=== PATIENT | female | born 1980 | race Caucasian/White ===

== ENCOUNTER 2018-04-03 09:03 | Day surgery (SDC) | payer OTHER ==
--- OUTSIDE RECORDS SUMMARY | 2018-04-03 09:06 | XMS REPORT ---
:1980 [facility] Address [address] [place] [address] Dr. Martinez[address] [place] [id number] Care Team Providers Name Role Phone DR XOCHITL FAYE Unavailable Unavailable Problems This patient has no known problems. Allergies, Adverse Reactions, Alerts This patient has no known allergies or adverse reactions. Medications This patient has no known medications. Encounters Start End Encounter Admission Attending Care Care Encounter Date/Time Date/Time Type Type Clinicians Facility Department ID 2017-09-01 2017-09-01 Outpatient C LAUREN FAYE [facility] [id number] 05:08:00 09:01:00 XOCHITL
--- OUTSIDE RECORDS SUMMARY | 2018-04-03 09:06 | XMS REPORT | Clinical Summary ---
:1980 Author Organization [facility] Address [address] [place] [address] Phone Care Team Providers Name Role Phone Unavailable Primary Care Provider Unavailable Allergies No Known Allergies Current Medications Prescription Sig. Disp. Refills Start Date End Date Status sertraline (ZOLOFT) 25 MG Take 25 mg by Active tablet mouth daily. esomeprazole (NEXIUM) 20 Take 20 mg by Active MG capsule mouth daily. Active Problems Problem Noted Date Abdominal pain 06/23/2016 Social History Tobacco Use Types Packs/Day Years Used Date Current Every Day Smoker Cigarettes Sex Assigned at Date Recorded Not on file Last Filed Vital Signs Not on file Plan of Treatment Not on file Results Not on fileafter 04/02/2017
--- NOTE | 2018-04-03 09:34 | RAD REPORT ---
EXAM DESCRIPTION: RAD - Abdomen 1 View (KUB) - 04/03/2018 9:12 am CLINICAL HISTORY: Right nephrolithiasis COMPARISON: 04/02/2018, 02/27/2018 FINDINGS: The bowel gas pattern is non-obstructive. No evidence of free air or pneumatosis. Calcific ations in the superior aspect of the right kidney compatible with right nephrolithiasis noted. Cholecystectomy clips. Postsurgical changes about the stomach seen. IMPRESSION: Right superior nephrolithiasis as detailed.
[2018-04-03] MEDS ORDERED: Ringers Lactate 1,000 ML IV ONE (09:35)
[2018-04-03] MEDS ORDERED: GENTAMICIN 80 MG/100 ML BAG 80 MG/100 ML BAG IV ONE (09:36)
[2018-04-03] MEDS ORDERED: PROPOFOL 200 MG/20 ML VIAL IV ONE (11:08)
[2018-04-03] MEDS ORDERED: MIDAZOLAM HCL 2 MG/2 ML INJ ONE (11:09)
[2018-04-03] MEDS ORDERED: FENTANYL CITR 100 MCG/2 ML ONE (11:09)
[2018-04-03] MEDS ORDERED: LIDOCAINE 1% MPF 5 ML VIAL ONE (11:14)
[2018-04-03] MEDS ORDERED: ONDANSETRON 4 MG/2 ML VIAL ONE (12:01)
[2018-04-03] MEDS: MEPERIDINE HCL 25 MG/0.5 ML ONE ×2 (12:51→13:04)
[2018-04-03] MEDS ORDERED: DIPHENHYDRAMINE 50 MG/ML VIAL ONE (13:17)
[2018-04-03] MEDS ORDERED: MEPERIDINE HCL 25 MG/0.5 ML ONE (13:19)
== END 2018-04-03 15:30 | disposition home or self-care (01) ==
LOC: OR 09:03
PROVIDERS: ATTEND Urology
PROC: 0TF3XZZ Fragmentation in Right Kidney Pelvis, External Approach (ICD-10-PCS; principal; 2018-04-03 12:00)
DX: N20.0 Calculus of kidney (principal); K50.90 Crohn's disease, unspecified, without complications; F17.200 Nicotine dependence, unspecified, uncomplicated; Z98.84 Bariatric surgery status; Z83.3 Family history of diabetes mellitus; Z82.49 Family history of ischemic heart disease and other diseases of the circulatory system
CPT/HCPCS: 50590; 74018; J1580; J2175; J2250; J2405; J3010

== ENCOUNTER 2021-03-14 06:48 | Inpatient (IN) | payer BC, OTHER ==
--- OUTSIDE RECORDS SUMMARY | 2021-03-14 06:49 | XMS REPORT | Continuity of Care Document ---
:[address] [facility] Address [address] [place] [address] Care Team Providers Name Role Phone Asked, Pcp Primary Care Physician Unavailable DR YUNIER Attending Clinician Unavailable DR YUNIER Admitting Clinician Unavailable Problems Condition Condition Condition Status Onset Resolution Last Treating Co mments Source Name Details Category Date Date Treatment Clinician Date Abdominal Abdominal Disease Active [facility] Allergies, Adverse Reactions, Alerts This patient has no known allergies or adverse reactions. Social History Social Habit Start Date Stop Date Quantity Comments Source History of Cigarette Sm[facility] intake 2016-06-23 2016-06-[address] [facility] Sex Assigned At [birth year] [facility] 00:[facility]:00 00:00:00 Smoking Status Start Date Stop Date Source Current every day smoker 2016-06-23 00:00:[address] [facility] Medications Ordered Filled Start Stop Current Ordering Indication Dosage Frequency Signature Comments Components Source Medication Medication Date Date Medication? Clinician (SIG) Name Name sertraline Yes 25mg QD Take [address] (ZOLOFT) 25 - by mouth [facility] - MG tablet 16:25: daily. Medica l [address] [place] [address] esomeprazol Yes 20mg QD Take [address] [facility] (NEXIUM) 06-24 [facility] - 20 MG 16:25: daily. Medical capsule [address] [place] [address] Procedures This patient has no known procedures. Plan of Care Planned Activity Planned Date Details Comments Source Future Scheduled 2021-06-27 INFLUENZA VACCINE [place] [facility] 00:00:00 [code = INFLUENZA VACCINE] Future Scheduled [address] [facility]odist Test 00:00:00 malignant neoplasm of cervix (procedure) [code = 499565304] Future Scheduled 2000 Hepatitis C [facility] 00:00:00 screening (procedure) [code = 661516430] Future Scheduled 1998 COVID-19 VACCINE (1) [facility] 00:00:00 [code = COVID-19 VACCINE (1)] Encounters Start End Encounter Admission Attending Care Care Encounter Source Date/Time Date/Time Type Type Clinicians Facility Department ID 2017-09-01 2017-09-01 Outpatient C LAUREN FAYE [facility] [id number] [address] 05:08:00 09:01:00 [facility] Results This patient has no known results.
[2021-03-14 08:01] LABS: Absolute Lymphocytes (CBC) 2.7 K/uL (0.7-4.9); Basophils % 0.6 % (0-1.3); MPV 9.7 fL (7.6-11.3); RBC Red Blood Cell Count 4.57 M/uL (3.86-4.86)
[2021-03-14] MEDS ORDERED: ONDANSETRON 4 MG/2 ML VIAL ONE ×2 (08:01→13:11)
[2021-03-14] MEDS ORDERED: CIPROFLOXACIN 400mg IV 400 MG/200 ML BAG IV ONE (08:01)
[2021-03-14] MEDS ORDERED: MORPHINE 4 MG/ML SYR ONE ×3 (08:01→13:11)
[2021-03-14] MEDS ORDERED: METRONIDAZOLE 500mg IVPB 500 MG/100 ML BAG IV ONE (08:02)
[2021-03-14] MEDS ORDERED: NA CHLORIDE 0.9% 3,000 ML ONE (08:02)
[2021-03-14 08:15] LABS: ALT/SGPT 54 U/L (12-78); AST/SGOT 29 U/L (15-37); Albumin 3.6 g/dL (3.4-5.0); Alkaline Phosphatase 167 U/L (45-117); BUN Blood Urea Nitrogen 13 mg/dL (7-18); Bicarbonate 28 mmol/L (21-32); Bilirubin Direct < 0.1 mg/dL (0-0.2); Bilirubin Total 0.4 mg/dL (0.2-1.0); Glucose Level 88 mg/dL (74-106); Lipase 242 U/L (73-393); Potassium 3.8 mmol/L (3.5-5.1); Protein, Total 7.3 g/dL (6.4-8.2); Sodium Level 141 mmol/L (136-145)
[2021-03-14 08:38] LABS: Blood Morphology Comment NOTED (NOT SEEN); Platelet Estimate ADEQ; Stomatocytes 1+
[2021-03-14] MEDS ORDERED: FAMOTIDINE 20 MG/2 ML VIAL IV ONE (08:49)
[2021-03-14 09:41] LABS: Urine Blood TRACE (Negative); Urine Glucose NEGATIVE (Negative); Urine Protein NEGATIVE (Negative); Urine pH 5.5 (5.0-7.0)
--- NOTE | 2021-03-14 10:29 | RAD REPORT ---
EXAM DESCRIPTION: CT - Abdomen Pelvis W Contrast - 03/14/2021 10:00 am CLINICAL HISTORY: Abdominal pain. COMPARISON: 2017 TECHNIQUE: Computed axial tomography of the abdomen and pelvis was obtained. 100 cc Isovue-300 is ad ministered intravenously. Oral contrast was given. All CT scans are performed using dose optimization technique as appropriate and may include automated exposure control or mA/KV adjustment according to patient size. FINDINGS: Gastrojejunostomy. Jejunum and portions of ileum are mildly dilated. Mild thickening of the wall of t he terminal ileum Left lobe of the liver is enlarged. Cholecystectomy. Spleen, pancreas, adrenals and kidneys appear unremarkable. Hysterectomy. There is no evidence of diverticulitis/colitis IMPRESSION: Mild thickening of the wall of the terminal ileum probably secondary to inflammation. Mild dilatation of small bowel probably an enteritis or ileus. If the patient's symptoms persist then followup abdominal plain film series would be recommended
--- NOTE | 2021-03-14 11:54 | ER ---
Nurse's Notes [facility] Name: Jovan Fregoso Age: 40 yrs Sex: Female : 1980 Arrival Date: 03/14/2021 Time: 06:51 Bed 7 Private MD: Diagnosis: Abdominal tenderness;Ileus, unspecified;Crohn's disease [regional enteritis];Vomiting Presentation: 03/14 07:00 Chief complaint: Patient states: hx of Crohn's, reports lower abdominal pain for 1-2 em weeks, reports blood in stool, saw her GI DR and prescribed ABX's, pain is getting worse, also reports burning with urination and nausea, denies fever. Coronavirus screen: Client denies travel out of the [place] in the last 14 days. Ebola Screen: Patient negative for fever greater than or equal to 101.5 degrees Fahrenheit, and additional compatible Ebola Virus Disease symptoms Patient denies exposure to infectious person. Patient denies travel to an Ebola-affected area in the 21 days before illness onset. No symptoms or risks identified at this time. Initial Sepsis Screen: Does the patient meet any 2 criteria? No. Patient's initial sepsis screen is negative. Does the patient have a suspected source of infection? No. Patient's initial sepsis screen is negative. Risk Assessment: Do you want to hurt yourself or someone else? Patient reports no desire to harm self or others. Onset of symptoms was March 14, 2021. 07:00 Method Of Arrival: Ambulatory em 07:00 Acuity: AKIN 3 em NEWS VIDEO EDITOR: 09:46 LMP N/A - Hysterectomy jl7 Historical: - Allergies: 07:03 No Known Allergies; em - PMHx: 07:03 Crohn's; em - PSHx: 07:03 Hysterectomy; multiple bowel surgeries; Cholecystectomy; Appendectomy; ; em - Immunization history:: Adult Immunizations up to date. - Social history:: Smoking status: Patient denies any tobacco usage or history of. - Family history:: not pertinent. Screenin:24 Abuse screen: Denies threats or abuse. Denies injuries from another. Nutritional jl7 screening: No deficits noted. Tuberculosis screening: No symptoms or risk factors identified. Fall Risk IV access (20 points). Total Pan Fall Scale indicates No Risk (0-24 pts). Assessment: 07:30 Reassessment: Dr. Hays at bedside. jl7 07:45 General: Appears in no apparent distress. uncomfortable, Behavior is calm, cooperative, jl7 appropriate for age, crying. Pain: Complains of pain in abdomen diffusely Pain currently is 10 out of 10 on a pain scale. Quality of pain is described as sharp, Pain began x 2 weeks Is continuous. Neuro: Level of Consciousness is awake, alert, obeys commands, Oriented to person, place, time, situation. Cardiovascular: Patient's skin is warm and dry. Respiratory: Airway is patent Respiratory effort is even, unlabored, Respiratory pattern is regular, symmetrical. GI: Abdomen is non-distended, Reports lower abdominal pain, upper abdominal pain, bloody stool, nausea. : Reports burning with urination. Derm: Skin is pink, warm \\T\\ dry. 08:10 Reassessment: Pt finished drinking oral contrast, CT notified. jl7 08:56 Reassessment: Pain decreased but still 7/10, ERD notified, see MAR for orders. jl7 10:00 Reassessment: Patient appears in no apparent distress at this time. Patient and/or jl7 family updated on plan of care and expected duration. Pain level reassessed. Patient is alert, oriented x 3, equal unlabored respirations, skin warm/dry/pink. 11:00 Reassessment: Patient appears in no apparent distress at this time. Patient and/or jl7 family updated on plan of care and expected duration. Pain level reassessed. Patient is alert, oriented x 3, equal unlabored respirations, skin warm/dry/pink. 12:00 Reassessment: Patient appears in no apparent distress at this time. Patient and/or jl7 family updated on plan of care and expected duration. Pain level reassessed. Patient is alert, oriented x 3, equal unlabored respirations, skin warm/dry/pink. 13:00 Reassessment: Patient appears in no apparent distress at this time. Patient and/or jl7 family updated on plan of care and expected duration. Pain level reassessed. Patient is alert, oriented x 3, equal unlabored respirations, skin warm/dry/pink. 14:00 Reassessment: Patient appears in no apparent distress at this time. Patient and/or jl7 family updated on plan of care and expected duration. Pain level reassessed. Patient is alert, oriented x 3, equal unlabored respirations, skin warm/dry/pink. 14:20 Reassessment: Pt c/o itching and states "They normally give me Benadryl with the pain jl7 medicine." ERD notified, see MAR for orders. 16:30 Reassessment: Pt c/o continued pain and itching, states "Can I have something other jl7 than Morphine?" Hospitalist is on his way to her room, pt verbalized understanding. 16:45 Reassessment: Hospitalist at bedside. jl7 17:54 Reassessment: Pt c/o continued itching, states "The other doctor said he was going to jl7 put for me to have Dilaudid and Benadryl with it." Informed pt the hospitalist put in for her to have 2 mg Morphine and Benadryl q8hrs, updated that I would need to get in contact with the hospitalist. Pt verbalized understanding. JENNIFER Orozco night hospitalist gave VO for 0.5 mg Dilaudid IVP and 12.5 mg Benadryl IVP x 1, medicated as ordered. 20:00 GI: Bowel sounds present X 4 quads. Abd is soft and non tender X 4 quads. rv Vital Signs: 07:00 BP 129 / 78; Pulse 90; Resp 18; Temp 97.8(O); Pulse Ox 99% on R/A; Weight 99.79 kg; em Height 5 ft. 3 in. (160.02 cm); Pain 9/10; 08:24 BP 118 / 70; Pulse 78; Resp 15; Pulse Ox 99% ; jl7 09:46 BP 120 / 89; Pulse 61; Resp 15; Pulse Ox 100% ; jl7 10:46 BP 103 / 83; Pulse 58; Resp 15; Pulse Ox 99% ; jl7 13:00 BP 130 / 96; Pulse 59; Resp 15; Pulse Ox 98% ; jl7 17:45 BP 129 / 94; Pulse 57; Resp 15; Pulse Ox 100% ; jl7 19:44 BP 125 / 93; Pulse 63; Resp 19; Pulse Ox 99% ; rr5 07:00 Body Mass Index 38.97 (99.79 kg, 160.02 cm) em ED Course: 06:51 Patient arrived in ED. bp1 07:02 Triage completed. em 07:03 Arm band placed on. em 07:09 Estrella Rice, ABBEY is Primary Nurse. jl7 07:13 Randell Hays MD is Attending Physician. anuj 07:50 Initial lab(s) drawn, by me, sent to lab. Inserted saline lock: 20 gauge in right jl7 antecubital area, using aseptic technique. Blood collected. 08:00 Urine collected: clean catch specimen. jl7 08:24 Patient has correct armband on for positive identification. Bed in low position. Call jl7 light in reach. Side rails up X 1. Pulse ox on. NIBP on. Warm blanket given. 08:25 COVID swab sent to lab. jl7 10:00 CT Abd/Pelvis - PO and IV Contrast In Process Unspecified. EDMS 11:52 Prince Cornell MD is Hospitalizing Provider. anuj 16:11 Johnny Glez MD is Hospitalizing Provider. anuj 18:04 No provider procedures requiring assistance completed. Patient admitted, IV remains in jl7 place. intact, No redness/swelling at site. 19:15 Primary Nurse role handed off by Estrella Rice, ABBEY mw2 19:40 Nicolas Payton RN is Primary Nurse. rr5 Administered Medications: 07:45 Drug: NS 0.9% 1000 ml Route: IV; Rate: 1 bolus; Site: right antecubital; jl7 09:00 Follow up: Response: No adverse reaction; IV Status: Completed infusion; IV Intake: jl7 1000ml 07:45 Drug: Flagyl (metroNIDAZOLE) 500 mg Volume: 100 ml; Route: IVPB; Rate: 200 ml/hr; jl7 Infused Over: 30 mins; Site: right antecubital; 08:15 Follow up: Response: No adverse reaction; IV Status: Completed infusion jl7 07:48 Drug: Zofran (Ondansetron) 4 mg Route: IVP; Site: right antecubital; jl7 08:00 Follow up: Response: No adverse reaction; Nausea is decreased jl7 07:50 Drug: morphine 4 mg Route: IVP; Site: right antecubital; jl7 08:00 Follow up: Response: No adverse reaction; Pain is decreased jl7 07:50 Drug: Cipro (ciprofloxacin) 400 mg Volume: 200 ml; Route: IVPB; Infused Over: 60 mins; jl7 Site: right antecubital; 08:50 Follow up: Response: No adverse reaction; IV Status: Completed infusion jl7 08:17 Drug: NS 0.9% 1000 ml Route: IV; Rate: 125 ml/hr; Site: right antecubital; jl7 12:58 Follow up: IV Status: Infusion continued upon admission jl7 08:55 Drug: Pepcid (famotidine) 20 mg Route: IVP; Site: right antecubital; jl7 09:47 Follow up: Response: No adverse reaction jl7 08:55 Drug: NS 0.9% 1000 ml Route: IV; Rate: 1 bolus; Site: right antecubital; jl7 10:30 Follow up: Response: No adverse reaction; IV Status: Completed infusion; [facility]: [facility] 1000ml 09:02 Drug: morphine 4 mg Route: IVP; Site: right antecubital; jl7 09:30 Follow up: Response: No adverse reaction; Pain is decreased jl7 12:12 Drug: SOLU-Medrol (methylPrednisoLONE) 125 mg Route: IVP; Site: right antecubital; ca1 12:57 Follow up: Response: No adverse reaction jl7 12:55 Drug: Zofran (Ondansetron) 4 mg Route: IVP; Site: right antecubital; jl7 13:15 Follow up: Response: No adverse reaction; Nausea is decreased jl7 12:57 Drug: morphine 4 mg Route: IVP; Site: right antecubital; jl7 13:15 Follow up: Response: No adverse reaction; Pain is decreased jl7 14:23 Drug: Benadryl (diphenhydrAMINE) 25 mg Route: IVP; Site: right antecubital; jl7 20:02 Follow up: Response: No adverse reaction rv 17:53 Drug: Benadryl (diphenhydrAMINE) 12.5 mg Route: IVP; Site: right antecubital; jl7 20:02 Follow up: Response: No adverse reaction rv 17:53 Drug: Dilaudid (HYDROmorphone) 0.5 mg Route: IVP; Site: right antecubital; jl7 20:02 Follow up: Response: No adverse reaction; Marked relief of symptoms; Pain is decreased; rv RASS: Alert and Calm (0) 17:54 Not Given (wrong order): Dilaudid (HYDROmorphone) 0.5 mg IM once; RASS on ADMIN: jl7 Combtv4, Very Agttd3, Agttd2, Rstlss1, AlertClm0, Drwsy-1, Lt Sdtn-2, Mod Sdtn-3, Dp Sdtn-4, UnArsble-5 Intake: 09:00 IV: 1000ml; Total: 1000ml. jl7 10:30 IV: 1000ml; Total: 2000ml. jl7 Outcome: 11:53 Decision to Hospitalize by Provider. anuj 19:19 Instructed on the need for admit. mary anne 20:00 Admitted to Tele accompanied by tech, via wheelchair, room 428, Other sbar Report rv called to DANY POTTER 20:00 Condition: good 20:25 Patient left the ED. rv Signatures: Dispatcher [employer] Randell Vallejo MD MD cha Munoz, Edgar, RN RN Estrella Ku, RN RN jl7 Latrice Mcdermott RN Naresh Childress ea 2 Dhaval iNcholson RN RN Nicolas Andre, RN RN rr5 Shaista Manzo, RN RN ca1 Sheela Moon bp1
--- NOTE | 2021-03-14 11:54 | EDPHYS ---
Physician Documentation [facility] Name: Jovan Fregoso Age: 40 yrs Sex: Female : 1980 Arrival Date: 03/14/2021 Time: 06:51 Bed 7 Private MD: YUMIKO Physician Randell Hays HPI: 03/14 07:44 This 40 yrs old Female presents to ER via Ambulatory with complaints of anuj Abdominal Pain. 07:44 The patient presents with abdominal pain in the upper abdomen, in the lower abdomen, anuj abdominal distention in the upper abdomen, in the lower abdomen. Onset: The symptoms/episode began/occurred 2 day(s) ago. The patient presents to the emergency department with nausea, vomiting, abdominal pain, of the right upper quadrant, left upper quadrant, right lower quadrant and left lower quadrant. Onset: The symptoms/episode began/occurred 2 day(s) ago. Possible causes: unknown. The symptoms are aggravated by movement, pressure, food , The symptoms are alleviated by. The symptoms do not radiate. Associated signs and symptoms: Pertinent positives: abdominal pain, belching, nausea, vomiting. Modifying factors: The symptoms are alleviated by remaining still, the symptoms are aggravated by drinking, food, movement. SCHEDULE CHECKER: 09:46 LMP N/A - Hysterectomy jl7 Historical: - Allergies: 07:03 No Known Allergies; em - PMHx: 07:03 Crohn's; em - PSHx: 07:03 Hysterectomy; multiple bowel surgeries; Cholecystectomy; Appendectomy; ; em - Immunization history:: Adult Immunizations up to date. - Social history:: Smoking status: Patient denies any tobacco usage or history of. - Family history:: not pertinent. ROS: 07:44 Constitutional: Negative for fever, chills, and weight loss, Eyes: Negative for injury, anuj pain, redness, and discharge, ENT: Negative for injury, pain, and discharge, Neck: Negative for injury, pain, and swelling, Cardiovascular: Negative for chest pain, palpitations, and edema, Respiratory: Negative for shortness of breath, cough, wheezing, and pleuritic chest pain, Back: Negative for injury and pain, : Negative for injury, bleeding, discharge, and swelling, MS/Extremity: Negative for injury and deformity, Skin: Negative for injury, rash, and discoloration, Neuro: Negative for headache, weakness, numbness, tingling, and seizure, Psych: Negative for depression, anxiety, suicide ideation, homicidal ideation, and hallucinations, Allergy/Immunology: Negative for hives, rash, and allergies, Endocrine: Negative for neck swelling, polydipsia, polyuria, polyphagia, and marked weight changes, Hematologic/Lymphatic: Negative for swollen nodes, abnormal bleeding, and unusual bruising. 07:44 Abdomen/GI: Positive for abdominal pain, nausea and vomiting, abdominal cramps, abdominal distension, of the right upper quadrant, left upper quadrant, right lower quadrant and left lower quadrant. Exam: 07:44 Constitutional: This is a well developed, well nourished patient who is awake, alert, anuj and in no acute distress. Head/Face: Normocephalic, atraumatic. Eyes: Pupils equal round and reactive to light, extra-ocular motions intact. Lids and lashes normal. Conjunctiva and sclera are non-icteric and not injected. Cornea within normal limits. Periorbital areas with no swelling, redness, or edema. ENT: Nares patent. No nasal discharge, no septal abnormalities noted. Tympanic membranes are normal and external auditory canals are clear. Oropharynx with no redness, swelling, or masses, exudates, or evidence of obstruction, uvula midline. Mucous membranes moist. Neck: Trachea midline, no thyromegaly or masses palpated, and no cervical lymphadenopathy. Supple, full range of motion without nuchal rigidity, or vertebral point tenderness. No Meningismus. Chest/axilla: Normal chest wall appearance and motion. Nontender with no deformity. No lesions are appreciated. Cardiovascular: Regular rate and rhythm with a normal S1 and S2. No gallops, murmurs, or rubs. Normal PMI, no JVD. No pulse deficits. Respiratory: Lungs have equal breath sounds bilaterally, clear to auscultation and percussion. No rales, rhonchi or wheezes noted. No increased work of breathing, no retractions or nasal flaring. Back: No spinal tenderness. No costovertebral tenderness. Full range of motion. Skin: Warm, dry with normal turgor. Normal color with no rashes, no lesions, and no evidence of cellulitis. MS/ Extremity: Pulses equal, no cyanosis. Neurovascular intact. Full, normal range of motion. Neuro: Awake and alert, GCS 15, oriented to person, place, time, and situation. Cranial nerves II-XII grossly intact. Motor strength 5/5 in all extremities. Sensory grossly intact. Cerebellar exam normal. Normal gait. Psych: Awake, alert, with orientation to person, place and time. Behavior, mood, and affect are within normal limits. 07:44 Abdomen/GI: Inspection: abdomen appears normal, Bowel sounds: normal, Palpation: moderate abdominal tenderness, in all quadrants, Liver: no appreciated palpable abnormalities, Hernia: not appreciated. Vital Signs: 07:00 BP 129 / 78; Pulse 90; Resp 18; Temp 97.8(O); Pulse Ox 99% on R/A; Weight 99.79 kg; em Height 5 ft. 3 in. (160.02 cm); Pain 9/10; 08:24 BP 118 / 70; Pulse 78; Resp 15; Pulse Ox 99% ; jl7 09:46 BP 120 / 89; Pulse 61; Resp 15; Pulse Ox 100% ; jl7 10:46 BP 103 / 83; Pulse 58; Resp 15; Pulse Ox 99% ; jl7 13:00 BP 130 / 96; Pulse 59; Resp 15; Pulse Ox 98% ; jl7 17:45 BP 129 / 94; Pulse 57; Resp 15; Pulse Ox 100% ; jl7 19:44 BP 125 / 93; Pulse 63; Resp 19; Pulse Ox 99% ; rr5 07:00 Body Mass Index 38.97 (99.79 kg, 160.02 cm) em MDM: 07:13 Patient medically screened. anuj 07:47 Differential diagnosis: Nonspecific abd pain, pancreatitis, diverticulitis, anuj cholecystitis, Cholelithiasis, diverticulitis, Irritable bowel syndrome, non-specific abd pain, Peptic Ulcer Disease, Ureterolithiasis, urinary tract infection. Data reviewed: vital signs, nurses notes, lab test result(s), radiologic studies, CT scan. 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 Test interpretation: by ED physician or midlevel provider:. Counseling: I had a detailed discussion with the patient and/or guardian regarding: the historical points, exam findings, and any diagnostic results supporting the discharge/admit diagnosis, lab results, radiology results. 03/14 07:38 Order name: Basic Metabolic Panel; Complete Time: 08:51 anuj 03/14 07:38 Order name: CBC with Diff; Complete Time: 08:51 anuj 03/14 07:38 Order name: Hepatic Function; Complete Time: 08:51 anuj 03/14 07:38 Order name: Lipase; Complete Time: 08:51 anuj 03/14 07:48 Order name: Urine --Ancillary (enter results); Complete Time: 09:31 eb 03/14 07:38 Order name: CT Abd/Pelvis - PO and IV Contrast; Complete Time: 17:40 anuj 03/14 07:49 Order name: Urine Dipstick--Ancillary (enter results) eb 03/14 07:50 Order name: Urine Dipstick-Ancillary EDMS 03/14 08:02 Order name: Manual Differential; Complete Time: 08:51 EDMS 03/14 09:09 Order name: SARS-COV-2 RT PCR; Complete Time: 09:31 EDMS 03/14 16:22 Order name: CBC with Automated Diff EDMS 03/14 16:22 Order name: CBC with Automated Diff EDMS 03/14 16:22 Order name: CBC with Automated Diff EDMS 03/14 07:38 Order name: IV Saline Lock; Complete Time: 08:19 anuj 03/14 07:38 Order name: Labs collected and sent; Complete Time: 08:19 anuj 03/14 07:38 Order name: Urine Dipstick-Ancillary (obtain specimen); Complete Time: 08:19 anuj 03/14 16:22 Order name: Clear Liquid EDMS Administered Medications: 07:45 Drug: NS 0.9% 1000 ml Route: IV; Rate: 1 bolus; Site: right antecubital; jl7 09:00 Follow up: Response: No adverse reaction; IV Status: Completed infusion; IV Intake: jl7 1000ml 07:45 Drug: Flagyl (metroNIDAZOLE) 500 mg Volume: 100 ml; Route: IVPB; Rate: 200 ml/hr; jl7 Infused Over: 30 mins; Site: right antecubital; 08:15 Follow up: Response: No adverse reaction; IV Status: Completed infusion jl7 07:48 Drug: Zofran (Ondansetron) 4 mg Route: IVP; Site: right antecubital; jl7 08:00 Follow up: Response: No adverse reaction; Nausea is decreased jl7 07:50 Drug: morphine 4 mg Route: IVP; Site: right antecubital; jl7 08:00 Follow up: Response: No adverse reaction; Pain is decreased jl7 07:50 Drug: Cipro (ciprofloxacin) 400 mg Volume: 200 ml; Route: IVPB; Infused Over: 60 mins; jl7 Site: right antecubital; 08:50 Follow up: Response: No adverse reaction; IV Status: Completed infusion jl7 08:17 Drug: NS 0.9% 1000 ml Route: IV; Rate: 125 ml/hr; Site: right antecubital; jl7 12:58 Follow up: IV Status: Infusion continued upon admission jl7 08:55 Drug: Pepcid (famotidine) 20 mg Route: IVP; Site: right antecubital; jl7 09:47 Follow up: Response: No adverse reaction jl7 08:55 Drug: NS 0.9% 1000 ml Route: IV; Rate: 1 bolus; Site: right antecubital; jl7 10:30 Follow up: Response: No adverse reaction; IV Status: Completed infusion; IV Intake: jl7 1000ml 09:02 Drug: morphine 4 mg Route: IVP; Site: right antecubital; jl7 09:30 Follow up: Response: No adverse reaction; Pain is decreased jl7 12:12 Drug: SOLU-Medrol (methylPrednisoLONE) 125 mg Route: IVP; Site: right antecubital; ca1 12:57 Follow up: Response: No adverse reaction jl7 12:55 Drug: Zofran (Ondansetron) 4 mg Route: IVP; Site: right antecubital; jl7 13:15 Follow up: Response: No adverse reaction; Nausea is decreased jl7 12:57 Drug: morphine 4 mg Route: IVP; Site: right antecubital; jl7 13:15 Follow up: Response: No adverse reaction; Pain is decreased jl7 14:23 Drug: Benadryl (diphenhydrAMINE) 25 mg Route: IVP; Site: right antecubital; jl7 20:02 Follow up: Response: No adverse reaction rv 17:53 Drug: Benadryl (diphenhydrAMINE) 12.5 mg Route: IVP; Site: right antecubital; jl7 20:02 Follow up: Response: No adverse reaction rv 17:53 Drug: Dilaudid (HYDROmorphone) 0.5 mg Route: IVP; Site: right antecubital; jl7 20:02 Follow up: Response: No adverse reaction; Marked relief of symptoms; Pain is decreased; rv RASS: Alert and Calm (0) 17:54 Not Given (wrong order): Dilaudid (HYDROmorphone) 0.5 mg IM once; RASS on ADMIN: jl7 Combtv4, Very Agttd3, Agttd2, Rstlss1, AlertClm0, Drwsy-1, Lt Sdtn-2, Mod Sdtn-3, Dp Sdtn-4, UnArsble-5 Disposition: 03/14/21 11:53 Hospitalization ordered by Johnny Glez for Inpatient Admission. Preliminary diagnosis are Abdominal tenderness, Ileus, unspecified, Crohn's disease [regional enteritis], Vomiting. - Bed requested for Telemetry/MedSurg (Inpatient). - Status is Inpatient Admission. rv - Condition is Fair. - Problem is new. - Symptoms have improved. Signatures: Dispatcher [employer] EDGA Randell Hays MD MD cha Munoz, Edgar, RN RN Francine Craig RN RN aa5 Ernesto Zamarripa, SHEEPSKIN PICKLER-C SHEEPSKIN PICKLER-Cla1 Estrella Rice RN RN jl7 Dhaval Nicholson, RN RN rv Shaista Manzo RN RN ca1 Corrections: (The following items were deleted from the chart) 08:29 07:39 CORONAVIRUS+MR.LAB.BRZ ordered. [facility] 16:11 11:53 Hospitalization Ordered by Prince Aneta LOPEZ for Inpatient Admission. Preliminary [facility] diagnosis is Abdominal tenderness; Ileus, unspecified; Crohn's disease [regional enteritis]; Vomiting. Bed requested for Telemetry/MedSurg (Inpatient). Status is Inpatient Admission. Condition is Fair. Problem is new. Symptoms have improved. anuj 19:01 16:11 03/14/2021 11:53 Hospitalization Ordered by Johnny Glez MD for Inpatient aa5 Admission. Preliminary diagnosis is Abdominal tenderness; Ileus, unspecified; Crohn's disease [regional enteritis]; Vomiting. Bed requested for Telemetry/MedSurg (Inpatient). Status is Inpatient Admission. Condition is Fair. Problem is new. Symptoms have improved. anuj 20:25 19:01 03/14/2021 11:53 Hospitalization Ordered by Johnny Glez MD for Inpatient rv Admission. Preliminary diagnosis is Abdominal tenderness; Ileus, unspecified; Crohn's disease [regional enteritis]; Vomiting. Bed requested for Telemetry/MedSurg (Inpatient). Status is Inpatient Admission. Condition is Fair. Problem is new. Symptoms have improved. aa5
[2021-03-14] MEDS ORDERED: METHYLPREDNISOLONE 125 MG INJ ONE (12:26)
[2021-03-14] MEDS ORDERED: DIPHENHYDRAMINE 50 MG/ML VIAL ONE ×2 (14:39→18:04)
--- NOTE | 2021-03-14 16:22 | P.HP ---
Certification for Inpatient With expected LOS: >2 Midnights Practitioner: I am a practitioner with admitting privileges, knowledge of patient current condition, hospital course, and medical plan of care. Services: Services provided to patient in accordance with Admission requirements found in Title 42 Section 412.3 of the Code of Federal Regulations Patient History Date of Service: 03/14/21 Reason for admission: Crohn's disease flare up. History of Present Illness: 40 y o female pt with hx of depression and crohn's disease who was evaluated in the Ed for episode of bleeding per rectum. She follow's up with outpt GI specialist for management of crohn's disease. She had reported feeling of abd pain and passing blood per rectum and she was diagnosed with Crohn's flare. she was started on antibiotics by mouth and she reported feeling more discomfort and not improving so she decided to come to the ED for evaluation. she had a CT of the abd/pelvis which showed inflammation in the terminal iluem which was in keeping with Crohn's flare. she was admitted for inpt care. she denied any fever, chills, rigor, N/V or overt diarrhea. Allergies [place] And Derivatives Allergy (Verified 04/03/18 09:10) Rash Home Medications: Esomeprazole Mag Trihydrate [Nexium] 40 mg PO DAILY 04/03/18 Famotidine [Pepcid] 20 mg PO DAILY 04/03/18 Folic Acid 1 mg PO DAILY 04/03/18 Remicade 1 dose IV ONCE 04/03/18 Sertraline [Zoloft] 25 mg PO DAILY 04/03/18 Review of Systems General: Malaise Eyes: Unremarkable ENT: Unremarkable Respiratory: Unremarkable Cardiovascular: Unremarkable Gastrointestinal: Abdominal Pain, Hematochezia Genitourinary: Unremarkable Musculoskeletal: Unremarkable Integumentary: Unremarkable Neurological: Unremarkable Physical Examination - Physical Exam General: Alert, Oriented x3 HEENT: Atraumatic, Normocephalic Neck: Supple Respiratory: Clear to auscultation bilaterally Cardiovascular: Normal pulses, Regular rate/rhythm, Normal S1 S2 Gastrointestinal: Tenderness (in lower abd region.) Integumentary: No rashes Neurological: Normal speech, Normal strength at 5/5 x4 extr, Sensation intact, Cranial nerves 3-12 intact - Studies Laboratory Data (last 24 hrs) 03/14/21 07:49: WBC 5.90, Hgb 12.0, Hct 36.0, Plt Count 152 03/14/21 07:49: Sodium 141, Potassium 3.8, BUN 13, Creatinine 0.70, Glucose 88, Total Bilirubin 0.4, AST 29, ALT 54, Alkaline Phosphatase 167 H, Lipase 242 Assessment and Plan - Plan 1. GI bleed-deemed due to chrohn's flare. GI to evaluate in the coming week. we will start steroid and flagyl for management. Hb will be monitored. 2. Crohn's flare- solumedrol started. we will also start NS at 100ml/hr. we will monitor her response to present care. 3. Depression- we will continue Sertraline. Discharge Plan: Home - Advance Directives Does patient have a Living Will: No Does patient have a Durable POA for Healthcare: No
[2021-03-14] MEDS: NA CHLORIDE 0.9% 1,000 ML IV SCH (17:00)
[2021-03-14] MEDS ORDERED: DIPHENHYDRAMINE 50 MG/ML VIAL IV PRN (17:05)
[2021-03-14] MEDS: METHYLPREDNISOLONE 125 MG INJ IV SCH (18:00)
[2021-03-14] MEDS ORDERED: HYDROMORPHONE HCL 0.5 MG/0.5 ML INJ ONE (18:05)
[2021-03-14 22:02] VITALS: BMI 39.4
[2021-03-14] MEDS: cloNIDine HCL 0.1 MG TAB PO SCH (22:51)
[2021-03-14] MEDS: clonazePAM 1 MG TAB PO PRN (22:51)
[2021-03-15] MEDS: METRONIDAZOLE 500mg IVPB 500 MG/100 ML BAG IV SCH ×3 (02:07→17:15)
[2021-03-15] MEDS: MORPHINE 2 MG/ML SYR IV PRN ×2 (02:08→08:07)
[2021-03-15] MEDS: NA CHLORIDE 0.9% 1,000 ML IV SCH ×3 (03:00→14:07)
[2021-03-15 04:03] LABS: Absolute Lymphocytes (CBC) 1.1 K/uL (0.7-4.9); Basophils % 0.2 % (0-1.3); Hematocrit 35.4 % (36.0-45.0); Lymphocytes % 9.2 % (15.3-44.8); RBC Red Blood Cell Count 4.45 M/uL (3.86-4.86)
[2021-03-15 04:55] LABS: Blood Morphology Comment NOT SEEN (NOT SEEN); Platelet Estimate ADEQ
[2021-03-15] MEDS: CEFTRIAXONE/SWI 1gm 1 GM/10 ML SYR IV SCH (07:21)
[2021-03-15] MEDS: FAMOTIDINE 20 MG TAB PO SCH (07:22)
[2021-03-15] MEDS: METHYLPREDNISOLONE 125 MG INJ IV SCH (07:22)
[2021-03-15] MEDS: FOLIC ACID 1 MG TABLET PO SCH (07:22)
[2021-03-15] MEDS: SERTRALINE HCL 50 MG TAB PO SCH (07:22)
[2021-03-15] MEDS ORDERED: DIPHENHYDRAMINE 50 MG/ML VIAL IV PRN (07:34)
[2021-03-15] MEDS ORDERED: MORPHINE 2 MG/ML SYR IV PRN (08:26)
[2021-03-15] MEDS ORDERED: CEFTRIAXONE 1 GM/NS 50 ML 1 GM/50 ML BAG IV SCH (09:00)
[2021-03-15] MEDS: DIPHENHYDRAMINE 50 MG/ML VIAL IV PRN ×2 (14:05→21:48)
--- NOTE | 2021-03-15 17:21 | P.PN ---
Subjective Date of Service: 03/15/21 Chief Complaint: Crohn's disease flare up. Subjective: Improving (slight improvement, has itching with morphine, no nausea/vomiting, no BM, no flatus since yesterday) Review of Systems 10-point ROS is otherwise unremarkable Physical Examination - Vital Signs Temperature: 97.3 F Blood Pressure: 111/66 Pulse: 68 Respirations: 16 Pulse Ox (%): 94 Assessment & Plan Physician Review Additional Text: Physical Exam General: Alert, Oriented x3 HEENT: dry mucous membranes, normal conjunctiva, sclera anicteric Respiratory: Clear to auscultation bilaterally Cardiovascular: Regular rate/rhythm, Normal S1 S2 Gastrointestinal: Tenderness to palpation in LLQ, soft, no rebound Integumentary: No rashes Neurological: Normal speech, Normal strength at 5/5 x4 extr Problem List Crohn's flare with lower GI bleed / hematochezia Depression h/o gastroschisis -continue steroids, antibiotics, monitor H/H -PRN pain medication, change to low dose dilaudid -continue IVF -serial abdominal exams -GI consulted - pt sees Dr. Cuevas in the office -has been off Crohn's medications for 1-2 years Dispo: anticipate hospitalization > 2 days, dc home Time Spent Managing Pts Care (In Minutes): 35
[2021-03-15] MEDS: HYDROMORPHONE HCL 0.5 MG/0.5 ML INJ IV PRN ×2 (17:29→21:58)
--- NOTE | 2021-03-15 20:21 | RAD REPORT ---
EXAM DESCRIPTION: RAD - Abdomen Acute Series - 03/15/2021 8:06 pm CLINICAL HISTORY: Abdominal pain FINDINGS: Free air is not seen beneath the diaphragm. The lungs appear clear of acute infiltrate. Contrast is present throughout most of colon. Air is present within a few mildly dilated loops of sma ll bowel probably ileus. No evidence of a mechanical obstruction
[2021-03-15] MEDS ORDERED: cloNIDine HCL 0.1 MG TAB PO SCH (21:00)
[2021-03-15] MEDS: cloNIDine HCL 0.1 MG TAB PO SCH (22:01)
[2021-03-15] MEDS: clonazePAM 1 MG TAB PO PRN (22:04)
[2021-03-15] MEDS ORDERED: ONDANSETRON 4 MG/2 ML VIAL ONE (22:14)
[2021-03-15] MEDS: ONDANSETRON 4 MG/2 ML VIAL IV PRN (22:30)
[2021-03-16] MEDS: NA CHLORIDE 0.9% 1,000 ML IV SCH ×4 (00:20→19:00)
[2021-03-16] MEDS: METRONIDAZOLE 500mg IVPB 500 MG/100 ML BAG IV SCH ×3 (00:20→17:00)
[2021-03-16 04:01] LABS: Absolute Lymphocytes (CBC) 2.6 K/uL (0.7-4.9); Basophils % 0.2 % (0-1.3); Hematocrit 32.8 % (36.0-45.0); Lymphocytes % 20.1 % (15.3-44.8); MPV 10.3 fL (7.6-11.3); RBC Red Blood Cell Count 4.08 M/uL (3.86-4.86)
[2021-03-16 04:10] LABS: Albumin 3.2 g/dL (3.4-5.0); Bilirubin Total 0.2 mg/dL (0.2-1.0); Magnesium 2.2 mg/dL (1.8-2.4); Potassium 4.1 mmol/L (3.5-5.1); Protein, Total 6.3 g/dL (6.4-8.2)
[2021-03-16] MEDS: ONDANSETRON 4 MG/2 ML VIAL IV PRN (05:36)
[2021-03-16] MEDS: HYDROMORPHONE HCL 0.5 MG/0.5 ML INJ IV PRN ×4 (05:37→20:10)
[2021-03-16] MEDS: DIPHENHYDRAMINE 50 MG/ML VIAL IV PRN ×3 (05:41→20:19)
[2021-03-16] MEDS: FAMOTIDINE 20 MG TAB PO SCH (07:35)
[2021-03-16] MEDS: CEFTRIAXONE/SWI 1gm 1 GM/10 ML SYR IV SCH (07:35)
[2021-03-16] MEDS: FOLIC ACID 1 MG TABLET PO SCH (07:35)
[2021-03-16] MEDS: SERTRALINE HCL 50 MG TAB PO SCH (07:35)
[2021-03-16] MEDS: METHYLPREDNISOLONE 125 MG INJ IV SCH ×3 (08:04→20:09)
[2021-03-16] MEDS ORDERED: METHYLPREDNISOLONE 125 MG INJ IV SCH ×2 (09:00→12:00)
--- NOTE | 2021-03-16 17:00 | P.PN ---
Subjective Date of Service: 03/16/21 Chief Complaint: Crohn's disease flare up. Patient report improvement in abdominal pain but she still experiences pain with oral intake. She stated the diarrhea has stopped. The hematochezia has resolved. Physical Examination - Vital Signs Temperature: 97.5 F Blood Pressure: 131/94 Pulse: 56 Respirations: 16 Pulse Ox (%): 96 - Physical Exam General: Alert, In no apparent distress, Oriented x3 HEENT: Mucous membr. moist/pink Neck: JVD not distended Respiratory: Clear to auscultation bilaterally, Normal air movement Cardiovascular: No edema, Regular rate/rhythm, Normal S1 S2 Gastrointestinal: Normal bowel sounds, Soft and benign, Non-distended, No tenderness Musculoskeletal: No swelling Integumentary: No rashes Neurological: Other (No focal motor deficit.) Assessment And Plan Physician Review Additional Text: Problem List Crohn's flare with lower GI bleed / hematochezia Depression h/o gastroschisis -continue steroids, antibiotics, monitor H/H -GI input appreciated. -stool studies ordered but it appears the diarrhea has resolved. -PRN pain medication. -continue IVF -advanced diet as tolerated. -serial abdominal exams
[2021-03-16] MEDS: cloNIDine HCL 0.1 MG TAB PO SCH (20:09)
[2021-03-16] MEDS: clonazePAM 1 MG TAB PO PRN (23:58)
[2021-03-17] MEDS: NA CHLORIDE 0.9% 1,000 ML IV SCH ×2 (01:00→10:40)
[2021-03-17] MEDS: METRONIDAZOLE 500mg IVPB 500 MG/100 ML BAG IV SCH ×3 (01:00→16:10)
[2021-03-17] MEDS: METHYLPREDNISOLONE 125 MG INJ IV SCH (03:00)
[2021-03-17] MEDS: DIPHENHYDRAMINE 50 MG/ML VIAL IV PRN ×4 (04:00→21:21)
[2021-03-17] MEDS: HYDROMORPHONE HCL 0.5 MG/0.5 ML INJ IV PRN ×4 (04:00→21:21)
[2021-03-17 05:17] LABS: Absolute Lymphocytes (CBC) 1.6 K/uL (0.7-4.9); BUN Blood Urea Nitrogen 13 mg/dL (7-18); Basophils % 0.1 % (0-1.3); Bicarbonate 25 mmol/L (21-32); Glucose Level 182 mg/dL (74-106); Hematocrit 32.7 % (36.0-45.0); Lymphocytes % 13.9 % (15.3-44.8); MPV 10.3 fL (7.6-11.3); Potassium 4.2 mmol/L (3.5-5.1); RBC Red Blood Cell Count 4.08 M/uL (3.86-4.86); Sodium Level 142 mmol/L (136-145)
[2021-03-17] MEDS: CEFTRIAXONE/SWI 1gm 1 GM/10 ML SYR IV SCH (09:00)
[2021-03-17] MEDS ORDERED: METHYLPREDNISOLONE 40 MG INJ IV SCH (09:00)
[2021-03-17] MEDS: SERTRALINE HCL 50 MG TAB PO SCH (10:20)
[2021-03-17] MEDS: NA CHLORIDE 0.9% IV SCH (10:20)
[2021-03-17] MEDS: METHYLPRED NA SUC IV SCH (10:20)
[2021-03-17] MEDS: FOLIC ACID 1 MG TABLET PO SCH (10:21)
[2021-03-17] MEDS: FAMOTIDINE 20 MG TAB PO SCH (10:21)
[2021-03-17] MEDS: ONDANSETRON 4 MG/2 ML VIAL IV PRN (10:24)
--- NOTE | 2021-03-17 17:42 | P.PN ---
Subjective Date of Service: 03/17/21 Chief Complaint: Crohn's disease flare up. Patient reports significant abdominal pain with clear liquid diet. No diarrhea over the last few days. The hematochezia has resolved. Physical Examination - Vital Signs Temperature: 97.0 F Blood Pressure: 156/82 Pulse: 47 Respirations: 17 Pulse Ox (%): 97 - Physical Exam General: Alert, In no apparent distress Respiratory: Clear to auscultation bilaterally, Normal air movement Cardiovascular: No edema Gastrointestinal: Normal bowel sounds, Soft and benign, Non-distended, Tenderness (Moderate tenderness on deep palpation) Musculoskeletal: No swelling Integumentary: No rashes Neurological: Normal strength at 5/5 x4 extr Assessment And Plan Physician Review Additional Text: Problem List Crohn's flare with lower GI bleed / hematochezia Depression h/o gastroschisis -continue steroids, antibiotics. -GI input appreciated. -stool studies ordered but it appears the diarrhea has resolved. Patient has not been able to provide a sample for C. diff, or stool WBC. -hemoglobin appears stable at 10. -PRN pain medication. -continue IVF -clear liquid diet. -serial abdominal exams
[2021-03-17] MEDS: clonazePAM 1 MG TAB PO PRN (21:21)
[2021-03-17] MEDS: cloNIDine HCL 0.1 MG TAB PO SCH (21:22)
[2021-03-18] MEDS: METRONIDAZOLE 500mg IVPB 500 MG/100 ML BAG IV SCH ×3 (01:00→17:00)
[2021-03-18] MEDS: NA CHLORIDE 0.9% 1,000 ML IV SCH ×3 (02:50→21:00)
[2021-03-18] MEDS: HYDROMORPHONE HCL 0.5 MG/0.5 ML INJ IV PRN ×5 (02:52→23:33)
[2021-03-18] MEDS: DIPHENHYDRAMINE 50 MG/ML VIAL IV PRN ×3 (02:52→20:53)
[2021-03-18 04:19] LABS: Absolute Lymphocytes (CBC) 2.8 K/uL (0.7-4.9); Basophils % 0.2 % (0-1.3); Lymphocytes % 24.4 % (15.3-44.8); MPV 10.5 fL (7.6-11.3); RBC Red Blood Cell Count 4.22 M/uL (3.86-4.86)
[2021-03-18 04:34] LABS: ALT/SGPT 51 U/L (12-78); AST/SGOT 13 U/L (15-37); Albumin 3.4 g/dL (3.4-5.0); Alkaline Phosphatase 140 U/L (45-117); BUN Blood Urea Nitrogen 11 mg/dL (7-18); Bicarbonate 27 mmol/L (21-32); Bilirubin Total 0.2 mg/dL (0.2-1.0); Glucose Level 97 mg/dL (74-106); Potassium 3.7 mmol/L (3.5-5.1); Protein, Total 6.6 g/dL (6.4-8.2); Sodium Level 142 mmol/L (136-145)
[2021-03-18] MEDS: ONDANSETRON 4 MG/2 ML VIAL IV PRN (04:38)
[2021-03-18] MEDS ORDERED: Ringers Lactate 1,000 ML IV ONE (08:12)
[2021-03-18] MEDS ORDERED: LIDOCAINE 1% MPF 2 ML AMPULE ONE (09:07)
[2021-03-18] MEDS ORDERED: propofoL 200 MG/20 ML VIAL IV ONE (09:07)
[2021-03-18] MEDS ORDERED: MIDAZOLAM HCL 2 MG/2 ML INJ ONE (09:07)
[2021-03-18] MEDS: SERTRALINE HCL 50 MG TAB PO SCH (09:52)
[2021-03-18] MEDS: FOLIC ACID 1 MG TABLET PO SCH (09:52)
[2021-03-18] MEDS: CEFTRIAXONE/SWI 1gm 1 GM/10 ML SYR IV SCH (09:52)
[2021-03-18] MEDS: METHYLPRED NA SUC IV SCH (09:53)
[2021-03-18] MEDS: FAMOTIDINE 20 MG TAB PO SCH (09:53)
[2021-03-18] MEDS: NA CHLORIDE 0.9% IV SCH (09:53)
--- NOTE | 2021-03-18 14:26 | P.PN ---
Subjective Date of Service: 03/18/21 Chief Complaint: Crohn's disease flare up. Status post endoscopic today. Patient found to have mild gastritis. She reports diarrhea today. No hematochezia. Physical Examination - Vital Signs Temperature: 97.3 F Blood Pressure: 183/97 Pulse: 48 Respirations: 17 Pulse Ox (%): 100 - Physical Exam General: Alert, In no apparent distress, Oriented x3 HEENT: Mucous membr. moist/pink Respiratory: Clear to auscultation bilaterally, Normal air movement Cardiovascular: No edema, Regular rate/rhythm, Normal S1 S2 Gastrointestinal: Normal bowel sounds, Soft and benign, Non-distended, No tenderness Musculoskeletal: No swelling Integumentary: No rashes Neurological: Normal strength at 5/5 x4 extr Assessment And Plan Physician Review Additional Text: Problem List Crohn's flare with lower GI bleed / hematochezia Gastritis Depression h/o gastroschisis -status post endoscopic -continue steroids, antibiotics. -GI is following -check stool for C. diff and WBC now that patient has diarrhea -hemoglobin is stable. -PRN pain medication. -continue IVF -full liquid diet. s
[2021-03-18] MEDS ORDERED: HYDRALAZINE HCL 20 MG/ML VIAL IV PRN (14:27)
[2021-03-18] MEDS: clonazePAM 1 MG TAB PO PRN (20:54)
[2021-03-18] MEDS ORDERED: HYDROCODONE/APAP 10/325 TAB PO PRN (22:09)
[2021-03-18] MEDS: cloNIDine HCL 0.1 MG TAB PO SCH (22:22)
[2021-03-19] MEDS: METRONIDAZOLE 500mg IVPB 500 MG/100 ML BAG IV SCH ×3 (01:00→16:33)
[2021-03-19] MEDS: ONDANSETRON 4 MG/2 ML VIAL IV PRN ×2 (03:39→12:34)
[2021-03-19 04:13] LABS: Absolute Lymphocytes (CBC) 2.5 K/uL (0.7-4.9); Basophils % 0.2 % (0-1.3); Hematocrit 35.6 % (36.0-45.0); MPV 10.3 fL (7.6-11.3); RBC Red Blood Cell Count 4.39 M/uL (3.86-4.86)
[2021-03-19 04:30] LABS: Potassium 3.7 mmol/L (3.5-5.1)
[2021-03-19] MEDS: DIPHENHYDRAMINE 50 MG/ML VIAL IV PRN ×3 (07:49→20:25)
[2021-03-19] MEDS: HYDROMORPHONE HCL 0.5 MG/0.5 ML INJ IV PRN ×4 (07:49→20:25)
[2021-03-19] MEDS: CEFTRIAXONE/SWI 1gm 1 GM/10 ML SYR IV SCH (07:49)
[2021-03-19] MEDS: SERTRALINE HCL 50 MG TAB PO SCH (07:50)
[2021-03-19] MEDS: FOLIC ACID 1 MG TABLET PO SCH (07:50)
[2021-03-19] MEDS: FAMOTIDINE 20 MG TAB PO SCH (07:51)
[2021-03-19] MEDS ORDERED: POTASSIUM CL SA 10 MEQ TAB PO ONE (08:07)
[2021-03-19] MEDS: METHYLPRED NA SUC IV SCH (09:53)
[2021-03-19] MEDS: NA CHLORIDE 0.9% IV SCH (09:53)
[2021-03-19] MEDS: NA CHLORIDE 0.9% 1,000 ML IV SCH ×2 (09:55→16:34)
--- NOTE | 2021-03-19 15:56 | P.PN ---
Subjective Date of Service: 03/19/21 Chief Complaint: Crohn's disease flare up. Status post endoscopy. Patient found to have mild gastritis. No diarrhea today. No hematochezia. Patient reports abdominal pain with meals Physical Examination - Vital Signs Temperature: 97.4 F Blood Pressure: 152/92 Pulse: 62 Respirations: 12 Pulse Ox (%): 98 - Physical Exam General: Alert, In no apparent distress, Oriented x3 HEENT: Mucous membr. moist/pink Respiratory: Clear to auscultation bilaterally, Normal air movement Cardiovascular: No edema, Regular rate/rhythm, Normal S1 S2 Gastrointestinal: Normal bowel sounds, Soft and benign, Tenderness (Moderate tenderness on palpation) Musculoskeletal: No swelling Integumentary: No rashes Neurological: Normal strength at 5/5 x4 extr Assessment And Plan Physician Review Additional Text: Problem List Crohn's flare with lower GI bleed / hematochezia Gastritis Depression h/o gastroschisis -status post endoscopy -continue steroids, antibiotics. -GI is following -diarrhea has stopped. -hemoglobin is stable. -PRN pain medication. -continue IVF and antibiotics. -full liquid diet and advance as tolerated. s
[2021-03-19] MEDS: cloNIDine HCL 0.1 MG TAB PO SCH (20:24)
[2021-03-19] MEDS: clonazePAM 1 MG TAB PO PRN (22:33)
[2021-03-20] MEDS: NA CHLORIDE 0.9% 1,000 ML IV SCH ×3 (00:39→23:20)
[2021-03-20] MEDS: METRONIDAZOLE 500mg IVPB 500 MG/100 ML BAG IV SCH ×3 (00:40→16:27)
[2021-03-20] MEDS: DIPHENHYDRAMINE 50 MG/ML VIAL IV PRN ×4 (03:42→21:00)
[2021-03-20] MEDS: HYDROMORPHONE HCL 0.5 MG/0.5 ML INJ IV PRN ×4 (03:43→20:57)
[2021-03-20] MEDS: CEFTRIAXONE/SWI 1gm 1 GM/10 ML SYR IV SCH (07:38)
[2021-03-20] MEDS: FAMOTIDINE 20 MG TAB PO SCH (07:38)
[2021-03-20] MEDS: SERTRALINE HCL 50 MG TAB PO SCH (07:38)
[2021-03-20] MEDS: FOLIC ACID 1 MG TABLET PO SCH (07:38)
[2021-03-20] MEDS: METHYLPRED NA SUC IV SCH (10:07)
[2021-03-20] MEDS: NA CHLORIDE 0.9% IV SCH (10:07)
--- NOTE | 2021-03-20 12:43 | P.PN ---
Subjective Date of Service: 03/20/21 Chief Complaint: Crohn's disease flare up. Status post endoscopy. Patient found to have mild gastritis. No diarrhea today. No hematochezia. Patient reports abdominal pain with meals. She stated she had diarrhea last night. Physical Examination - Vital Signs Temperature: 97.3 F Blood Pressure: 119/78 Pulse: 45 Respirations: 16 Pulse Ox (%): 94 - Physical Exam General: Alert, In no apparent distress, Oriented x3 HEENT: Mucous membr. moist/pink Respiratory: Clear to auscultation bilaterally, Normal air movement Gastrointestinal: Normal bowel sounds, Soft and benign, Non-distended, Tenderness (Moderate tenderness on deep palpation.) Musculoskeletal: No swelling Integumentary: No rashes Neurological: Normal strength at 5/5 x4 extr Assessment And Plan Physician Review Additional Text: Problem List Crohn's flare with lower GI bleed / hematochezia Gastritis Depression h/o gastroschisis -status post endoscopy -continue steroids, antibiotics. -GI is following -diarrhea is intermittent. -hemoglobin is stable. -PRN pain medication. -continue IVF. -full liquid diet and advance as tolerated. s
[2021-03-20] MEDS: ONDANSETRON 4 MG/2 ML VIAL IV PRN (17:36)
[2021-03-20] MEDS: cloNIDine HCL 0.1 MG TAB PO SCH (20:56)
[2021-03-21] MEDS: ONDANSETRON 4 MG/2 ML VIAL IV PRN ×2 (00:39→13:11)
[2021-03-21] MEDS: METRONIDAZOLE 500mg IVPB 500 MG/100 ML BAG IV SCH ×3 (00:39→16:00)
[2021-03-21] MEDS ORDERED: TRAMADOL HCL 50 MG TAB PO ONE (05:30)
[2021-03-21] MEDS: NA CHLORIDE 0.9% 1,000 ML IV SCH ×2 (09:04→22:00)
[2021-03-21] MEDS: SERTRALINE HCL 50 MG TAB PO SCH (09:05)
[2021-03-21] MEDS: FAMOTIDINE 20 MG TAB PO SCH (09:06)
[2021-03-21] MEDS: FOLIC ACID 1 MG TABLET PO SCH (09:06)
[2021-03-21] MEDS: DIPHENHYDRAMINE 50 MG/ML VIAL IV PRN ×2 (09:07→22:49)
[2021-03-21] MEDS: HYDROMORPHONE HCL 0.5 MG/0.5 ML INJ IV PRN ×4 (09:08→22:49)
[2021-03-21] MEDS: CEFTRIAXONE/SWI 1gm 1 GM/10 ML SYR IV SCH (09:10)
[2021-03-21] MEDS: NA CHLORIDE 0.9% IV SCH (09:50)
[2021-03-21] MEDS: METHYLPRED NA SUC IV SCH (09:50)
[2021-03-21 12:47] LABS: HBsAG Nonreactive (Nonreactive)
[2021-03-21] MEDS: METOCLOPRAMIDE 10 MG/2mL INJ IV SCH ×2 (15:14→20:45)
[2021-03-21] MEDS: MAGNESIUM CITRATE 300 ML BOT PO SCH (15:14)
[2021-03-21] MEDS: GOLYTELY 4000 ML PO SCH (15:14)
--- NOTE | 2021-03-21 15:47 | P.PN ---
Subjective Date of Service: 03/21/21 Chief Complaint: Crohn's disease flare up. Status post endoscopy. Patient found to have mild gastritis. She report diarrhea last night, Patient reports persistent abdominal pain with meals. Physical Examination - Vital Signs Temperature: 97.5 F Blood Pressure: 120/78 Pulse: 63 Respirations: 16 Pulse Ox (%): 96 - Physical Exam General: Alert, In no apparent distress, Oriented x3 Neck: JVD not distended Respiratory: Clear to auscultation bilaterally, Normal air movement Cardiovascular: No edema, Regular rate/rhythm, Normal S1 S2 Gastrointestinal: Soft and benign, Non-distended, No tenderness Musculoskeletal: No swelling Integumentary: No rashes Neurological: Normal strength at 5/5 x4 extr Assessment And Plan Physician Review Additional Text: Problem List Crohn's flare with lower GI bleed / hematochezia Gastritis Depression h/o gastroschisis -status post endoscopy -continue steroids, antibiotics. -GI is following. Dr. Cuevas is planning colonoscopy tomorrow. -hemoglobin is stable. -PRN pain medication. -continue IVF. -colonoscopy prep per Dr. Cuevas. s
[2021-03-21] MEDS: cloNIDine HCL 0.1 MG TAB PO SCH (20:44)
[2021-03-21] MEDS: clonazePAM 1 MG TAB PO PRN (22:49)
[2021-03-22] MEDS: METRONIDAZOLE 500mg IVPB 500 MG/100 ML BAG IV SCH ×3 (00:25→16:47)
[2021-03-22] MEDS: METOCLOPRAMIDE 10 MG/2mL INJ IV SCH ×2 (03:30→14:19)
[2021-03-22] MEDS: NA CHLORIDE 0.9% 1,000 ML IV SCH ×3 (05:00→20:44)
[2021-03-22] MEDS: FOLIC ACID 1 MG TABLET PO SCH (07:49)
[2021-03-22] MEDS: SERTRALINE HCL 50 MG TAB PO SCH (07:49)
[2021-03-22] MEDS: FAMOTIDINE 20 MG TAB PO SCH (07:50)
[2021-03-22] MEDS: METHYLPRED NA SUC IV SCH (09:17)
[2021-03-22] MEDS: NA CHLORIDE 0.9% IV SCH (09:17)
[2021-03-22] MEDS: HYDROMORPHONE HCL 0.5 MG/0.5 ML INJ IV PRN ×4 (09:19→22:07)
[2021-03-22] MEDS ORDERED: propofoL 200 MG/20 ML VIAL IV ONE ×2 (13:10)
--- NOTE | 2021-03-22 13:53 | ENDO RPT ---
[address], [address] COLONOSCOPY PROCEDURE REPORT EXAM DATE: 03/22/2021 PATIENT NAME: Jovan Fregoso MR #: [id number] BIRTHDATE: 1980 ATTENDING: Daniel Cuevas Dr STATUS: inpatient COMMERCIAL HOUSEKEEPER: Vannesa Diamond RN and Lesly Avery INDICATIONS: The patient is a 40 yr old Female here for a colonoscopy due to hematochezia, abdominal pain, change in bowel habits, and constipation PROCEDURE PERFORMED: Colonoscopy with biopsy MEDICATIONS: Per Anesthesia. ESTIMATED BLOOD LOSS: None CONSENT: The patient understands the risks and benefits of the procedure and understands that these risks include, but are not limited to: sedation, allergic reaction, infection, perforation and/or bleeding. Alternative means of evaluation and treatment include, among others: physical exam, x-rays, and/or surgical intervention. The patient elects to proceed with this endoscopic procedure. DESCRIPTION OF PROCEDURE: During intra-op preparation period all mechanical medical equipment was checked for proper function. Hand hygiene and appropriate measures for infection prevention was taken. Procedure, possible complications, alternatives including, but not limited to possibility of bleeding, perforation, tear, infection, sepsis, need for surgery, need for blood transfusion, were explained to the patient. After the risks, benefits and alternatives of the procedure were thoroughly explained, Informed consent was verified, confirmed and timeout was successfully executed by the treatment team. The patient was placed in the left lateral position. A digital rectal exam was performed and revealed no abnormalities of the rectum. After appropriate level of anesthesia, the scope was passed. The EC-3890Li ([id number]) and EC-[id number] ([id number]) endoscope was introduced through the anus and advanced to the cecum, which was identified by both the appendix and ileocecal valve. The quality of the prep was fair. The instrument was then slowly withdrawn as the colon was fully examined. Scope withdrawal time was 8 minutes. COLON FINDINGS: A normal appearing cecum, ileocecal valve, and appendiceal orifice were identified. the ascending, transverse, descending, sigmoid colon, and rectum appeared unremarkable, except for mild erythema in the distal transverse colon on withdrawal of colonoscope. Random biopsies of the right colon / left colon / rectum obtained with history of Crohn's disease. Small internal hemorrhoids were found. Retroflexed views revealed small hemorrhoids. The scope was then completely withdrawn from the patient and the procedure terminated. ADVERSE EVENTS: There were no complications. IMPRESSIONS: 1. A normal appearing cecum, ileocecal valve, and appendiceal orifice were identified. the ascending, transverse, descending, sigmoid colon, and rectum appeared unremarkable except for mild erythema in the distal transverse colon on withdrawal of colonoscope 2. Random biopsies of the right colon / left colon / rectum obtained with history of Crohn's disease 3. Small internal hemorrhoids 4. Intubation to cecum RECOMMENDATIONS: [CPTCodes] RECALL: Return in 1 year(s) for Colonoscopy. Daniel Cuevas Dr eSigned: Daniel Cuevas Dr 03/22/2021 1:52 PM cc: CPT CODES: ICD9 CODES: PATIENT NAME: Jovan Fregoso MR#: [id number]
[2021-03-22] MEDS: MAGNESIUM CITRATE 300 ML BOT PO SCH (14:19)
[2021-03-22] MEDS: GOLYTELY 4000 ML PO SCH (14:19)
--- NOTE | 2021-03-22 17:14 | P.PN ---
Subjective Date of Service: 03/22/21 Chief Complaint: Crohn's disease flare up. Status post Colonoscopy. Only mild erythema found in the transverse colon per report. EGD: mild gastritis. . Physical Examination - Vital Signs Temperature: 97.6 F Blood Pressure: 130/64 Pulse: 59 Respirations: 16 Pulse Ox (%): 94 - Physical Exam General: Alert, In no apparent distress, Oriented x3 Neck: JVD not distended Respiratory: Clear to auscultation bilaterally, Normal air movement Cardiovascular: No edema, Regular rate/rhythm, Normal S1 S2 Gastrointestinal: Normal bowel sounds, Soft and benign, Non-distended, No tender ness Musculoskeletal: No swelling Integumentary: No rashes Neurological: Normal strength at 5/5 x4 extr Assessment And Plan Physician Review Additional Text: Problem List Crohn's flare with lower GI bleed / hematochezia Gastritis Depression h/o gastroschisis -status post endoscopy and colonoscopy -continue steroids, antibiotics. -GI-Dr. Tolbert is following. -hemoglobin is stable. -PRN pain medication. -continue IVF. Advanced diet as tolerated. -possible discharge in am. s
--- NOTE | 2021-03-22 18:43 | CON ---
Date of Consultation: 03/18/2021 Reason For Consultation: Crohn disease flare of medications including left lower quadrant pain, and hematochezia. History Of Present Illness: The patient is a 40-year-old white female with history of Crohn disease, who has been off her medications for over a year. She reports not having a stool in approximately 2 to 3 days. She has left lower quadrant pain, hematochezia, and nausea. She denies any emesis, feve rs, chills, night sweats, diarrhea, or change in weight. CT scan revealed mild thickening of the ter [place] ileum wall, mild distention of the small bowel, enteritis or ileus noted. Past Medical History: Significant for Crohn disease, reflux, obesity. Also, she has a history of de pression. She has hysterectomy, multiple bowel surgeries, cholecystectomy, appendectomy, and C-secti on. Home Medications: Include Nexium, Pepcid, folic acid, Remicade, Zoloft. Allergies: TO . Review of Systems: The patient has left lower quadrant pain, hematochezia, nausea, change in bowel habits, constipation. She denies any fevers, chills, night sweats, diarrhea, hematemesis, coffee-grounds emesis, melena, emesis. No stool in 2-3 days. Social History: She is with children. No tobacco or alcohol. Family History: Appears to be negative for Crohn or colon cancer. Physical Examination: Vital Signs: Temperature 97.9 degrees Fahrenheit, pulse 68, respirations 16, blood pressure 119/85, O2 saturation 100%. General: She is an obese female, lying in bed, in no acute distress. She is somewhat obese, 5 feet 3 inches, 223 pounds, BMI of 39.5 kg per sq. m. HEENT: Normocephalic, atraumatic. Anicteric. Pupils equal, round, and reactive to light. Extraocu lar movements are intact. Oropharynx is clear. Neck: Supple. No masses. Respiratory: Clear to auscultation bilaterally. Cardiac: Regular rate and rhythm. No gallops or rubs. Abdomen: Positive bowel sounds. Soft, nontender, nondistended. She had some left lower quadrant pa in. No peritoneal or Fletcher sign. No rebound. Some mild guarding in left lower quadrant. Extremities: No clubbing, cyanosis, or edema. 2+ pulses. Neuro: Alert and oriented x3. Grossly nonfocal. 5/5 motor, sensation, light touch. Laboratory Data: The patient has a white count of 12.9 up from 11.9 yesterday, hematocrit of 10.4 do wn from 11.7 yesterday, hematocrit 32.8, MCV of 81, platelet count of 152, polys of 73%, lymphocytes 20%, monocytes 7%. Sodium 144, potassium 4.1, chloride 113, bicarb 26, BUN of 15, creatinine of 0.8, glucose 103, calcium 8.1, magnesium 3.2. Bilirubin of 0.2, AST of 19, ALT of 59, alkaline phosphata se of 142, total protein 6.3, albumin 3.2, lipase of 242. Trace blood. Negative test. Se rologies; negative hepatitis A, B, and C. C diff is pending. SARS COVID-[address] abdomen and pelvis revealed mild thickening of the terminal ileum wall with mild distention of sma ll bowel, enteritis, early ileus. Impression: Crohn disease flare of medications for over a year. She was on Remicade in the past and plan to restart soon. The patient did not make it for restarting medication. She has left lower qu adrant pain, hematochezia, nausea, but no emesis, fevers, chills, night sweats, diarrhea. No stool p resent 2 to 3 days. This new onset constipation. CT revealing mild thickened terminal ileum wall an d dilatation of small bowel revealing enteritis consistent with Crohn disease or ileus. Recommendations: 1.IV fluids, IV steroids, and IV antibiotics. 2.P.r.n. pain medications, antiemetics. 3.Slowly advance diet from clear liquid to full liquids to a GI soft diet and low residue diet. 4.Check stool studies. 5.Check KUB to ensure dilatation of small bowel is resolving. VALENTINO/ETHEL Voice ID: [id number] Report ID: [id number]
[2021-03-22] MEDS: ONDANSETRON 4 MG/2 ML VIAL IV PRN (20:43)
[2021-03-22] MEDS: clonazePAM 1 MG TAB PO PRN (20:43)
[2021-03-22] MEDS: DIPHENHYDRAMINE 50 MG/ML VIAL IV PRN (20:43)
[2021-03-22] MEDS: cloNIDine HCL 0.1 MG TAB PO SCH (21:00)
[2021-03-23] MEDS: METRONIDAZOLE 500mg IVPB 500 MG/100 ML BAG IV SCH ×3 (01:09→16:25)
[2021-03-23] MEDS: NA CHLORIDE 0.9% 1,000 ML IV SCH ×2 (01:10→11:00)
[2021-03-23] MEDS: ONDANSETRON 4 MG/2 ML VIAL IV PRN (02:09)
[2021-03-23] MEDS: HYDROMORPHONE HCL 0.5 MG/0.5 ML INJ IV PRN ×2 (02:09→09:56)
[2021-03-23 03:56] LABS: Absolute Lymphocytes (CBC) 3.6 K/uL (0.7-4.9); Basophils % 0.2 % (0-1.3); Hematocrit 36.4 % (36.0-45.0); Lymphocytes % 26.8 % (15.3-44.8); RBC Red Blood Cell Count 4.53 M/uL (3.86-4.86)
[2021-03-23 04:34] LABS: BUN Blood Urea Nitrogen 8 mg/dL (7-18); Bicarbonate 29 mmol/L (21-32); Glucose Level 110 mg/dL (74-106); Potassium 3.6 mmol/L (3.5-5.1); Sodium Level 144 mmol/L (136-145)
--- NOTE | 2021-03-23 07:27 | RAD REPORT ---
EXAM DESCRIPTION: RAD - Abdomen 1 View (KUB) - 03/23/2021 6:51 am CLINICAL HISTORY: re-eval small bowel distention COMPARISON: Abdomen Pelvis W Contrast dated 03/14/2021 FINDINGS: Several nondilated air-filled small bowel loops are visible. Air is present filling but no t distending the colon. Stool volume has markedly diminished within the colon. No oral CT contrast is still identifiable. No obstruction, free air or pneumatosis. No suspicious calcifications. No significant bony findings IMPRESSION: Unremarkable bowel gas pattern. Stool volume has substantially diminished since prior im aging.
[2021-03-23 08:03] VITALS: O2SAT 99
[2021-03-23] MEDS: SERTRALINE HCL 50 MG TAB PO SCH (09:56)
[2021-03-23] MEDS: FAMOTIDINE 20 MG TAB PO SCH (09:57)
[2021-03-23] MEDS: FOLIC ACID 1 MG TABLET PO SCH (09:57)
[2021-03-23] MEDS: DIPHENHYDRAMINE 50 MG/ML VIAL IV PRN (10:02)
[2021-03-23] MEDS: NA CHLORIDE 0.9% IV SCH (11:01)
[2021-03-23] MEDS: METHYLPRED NA SUC IV SCH (11:01)
[2021-03-23] MEDS ORDERED: TRAMADOL HCL 50 MG TAB PO PRN (13:44)
[2021-03-23] MEDS ORDERED: DICYCLOMINE HCL 10 MG CAP PO SCH (14:00)
--- NOTE | 2021-03-23 17:22 | P.DS ---
Admission Date: 03/14/21 Discharge Date: 03/23/21 Disposition: ROUTINE DISCHARGE Discharge Condition: FAIR Reason for Admission: Crohn's disease flare up. Consultations: GI - Dr. Cuevas Procedures: CT Abd/Pelvis (03/14): Mild thickening of the wall of the terminal ileum probably secondary to inflammation. Mild dilatation of small bowel probably an enteritis or ileus. If the patient's symptoms persist then followup abdominal plain film series would be recommended Abd X-ray (03/15): Contrast is present throughout most of colon. Air is present within a few mildly dilated loops of small bowel probably ileus. No evidence of a mechanical obstruction Endoscopy (03/22): normal apperaing colon except for mild erytema in distal transverse colon on withdrawal of c-scope. KUB (03/23): Unremarkable bowel gas pattern. Stool volume has substantially diminished since prior imaging. Problem List Crohn's flare with lower GI bleed / hematochezia Gastritis Depression h/o gastroschisis Small internal hemorrhoids Brief History of Present Illness: 40 y o female pt with hx of depression and crohn's disease who was evaluated in the Ed for episode of bleeding per rectum. She follow's up with outpt GI specialist for management of crohn's disease. She had reported feeling of abd pain and passing blood per rectum and she was diagnosed with Crohn's flare. she was started on antibiotics by mouth and she reported feeling more discomfort and not improving so she decided to come to the ED for evaluation. she had a CT of the abd/pelvis which showed inflammation in the terminal iluem which was in keeping with Crohn's flare. she was admitted for inpt care. she denied any fever, chills, rigor, N/V or overt diarrhea. Hospital Course: Patient was treated with bowel rest and gradual increase in diet. She had some improvement during her hospitalization, but still reported having abdominal pain. GI was consulted and patient underwent endoscopy revealing Patient was taken off dilaudid and <1hr later patient reported feeling well enough to go home. She reported that she is scheduled for a GI appointment in ~2 days. Due to her continued pain and lack of intestinal signs/symptoms on c-scope, she was started on bentyl. She was tolerating clear liquid diet on day of discharge. She is to continue her home medications as previously prescribed. Vital Signs/Physical Exam: Physical Exam General: Alert, In no apparent distress, Oriented x3 Neck: JVD not distended Respiratory: Clear to auscultation bilaterally, Normal air movement Cardiovascular: No edema, Regular rate/rhythm, Normal S1 S2 Gastrointestinal: Normal bowel sounds, Soft and benign, Non-distended, No tende rness Musculoskeletal: No swelling Integumentary: No rashes Neurological: Normal strength at 5/5 x4 extr Temp Pulse Resp BP Pulse Ox 97.4 F 59 16 142/84 H 95 03/23/21 12:00 03/23/21 12:00 03/23/21 16:24 03/23/21 12:00 03/23/21 16:24 Laboratory Data at Discharge: WBC 13.30 K/uL (4.3-10.9) H D 03/23/21 03:12 Hgb 11.5 g/dL (12.0-15.0) L 03/23/21 03:12 Hct 36.4 % (36.0-45.0) 03/23/21 03:12 Plt Count 179 K/uL (152-406) D 03/23/21 03:12 Sodium 144 mmol/L (136-145) 03/23/21 03:12 Potassium 3.6 mmol/L (3.5-5.1) 03/23/21 03:12 BUN 8 mg/dL (7-18) 03/23/21 03:12 Creatinine 0.72 mg/dL (0.55-1.3) 03/23/21 03:12 Glucose 110 mg/dL (74-106) H 03/23/21 03:12 Magnesium 2.2 mg/dL (1.8-2.4) 03/16/21 03:11 Total Bilirubin 0.2 mg/dL (0.2-1.0) 03/18/21 03:44 AST 13 U/L (15-37) L 03/18/21 03:44 ALT 51 U/L (12-78) 03/18/21 03:44 Alkaline Phosphatase 140 U/L (45-117) H 03/18/21 03:44 Lipase 242 U/L (73-393) 03/14/21 07:49 Home Medications: cloNIDine HCL [Clonidine HCl] 1 tab PO BEDTIME 03/14/21 clonazePAM [Clonazepam] 1 mg PO BEDTIME 03/14/21 Duloxetine [Cymbalta *] 1 tab PO BEDTIME 03/15/21 Pantoprazole [Protonix Tab*] 1 tab PO BEDTIME 03/15/21 Dicyclomine [Bentyl*] 20 mg PO TID 14 Days #42 cap 03/23/21 predniSONE [Prednisone] 20 mg PO SEECOM 28 Days #35 tablet 03/23/21 New Medications: Dicyclomine [Bentyl*] 20 mg PO TID 14 Days #42 cap predniSONE [Prednisone] 20 mg PO SEECOM 28 Days #35 tablet Physician Discharge Instructions: You were found to have mild gastritis and crohn's flare up. You were treated with IV antibiotics and steroids, with some mild improvement. You are discharged home with steroids and dicyclomine to continue to help with your abdominal pain. Follow up with Dr. Cuevas as scheduled this week. Continue with clear liquid diet, slowly advance your diet as tolerated. Diet: [place] (clear liquid) Activity: Touch-down Followup: NONE,NONE [Primary Care Provider] - Daniel Cuevas MD [ASSOCIATE-ACTIVE - CAN ADMIT] - Time spent managing pt's care (in minutes): 35
[2021-03-23 17:33] VITALS: BP 138/84; TEMP 97
--- NOTE | 2021-03-26 18:21 | P.PN ---
Subjective Date of Service: 03/18/21 Chief Complaint: Crohn's disease flare up, LLQ pain, change in bowel habits / constipation Subjective: No new changes (No stool since admission. Still with LLQ pain. Limited on CL po intake. +nausea) Physical Examination - Vital Signs Temperature: 97.0 F Blood Pressure: 138/84 Pulse: 65 Respirations: 16 Pulse Ox (%): 95 Assessment And Plan - Current Problems (Diagnosis) (1) Crohn's disease Status: Acute (2) LLQ abdominal pain Status: Acute (3) Nausea Status: Acute (4) Change in bowel habits Status: Acute (5) Constipation Status: Acute (6) Hematochezia Status: Acute - Plan REC: 1) continue IVFs and IV antibiotics 2) continue IV steroids 3) continue prn pain medications and anti-emetics 4) await stool studies Physician Review Additional Text: Problem List Crohn's flare with lower GI bleed / hematochezia Gastritis Depression h/o gastroschisis -status post endoscopy and colonoscopy -continue steroids, antibiotics. -GI-Dr. Tolbert is following. -hemoglobin is stable. -PRN pain medication. -continue IVF. Advanced diet as tolerated. -possible discharge in am. s
--- NOTE | 2021-03-26 18:24 | P.PN ---
Subjective Date of Service: 03/19/21 Chief Complaint: Crohn's disease flare up, LLQ pain, change in bowel habits / constipation Subjective: No new changes (Still no stool. Limited po intake.) Physical Examination - Vital Signs Temperature: 97.0 F Blood Pressure: 138/84 Pulse: 65 Respirations: 16 Pulse Ox (%): 95 Assessment And Plan - Current Problems (Diagnosis) (1) Crohn's disease Status: Acute (2) LLQ abdominal pain Status: Acute (3) Nausea Status: Acute (4) Change in bowel habits Status: Acute (5) Constipation Status: Acute (6) Hematochezia Status: Acute - Plan REC: 1) continue IVFs and IV antibiotics 2) continue IV steroids 3) continue prn pain medications and anti-emetics 4) await stool studies 5) check KUB Physician Review Additional Text: Problem List Crohn's flare with lower GI bleed / hematochezia Gastritis Depression h/o gastroschisis -status post endoscopy and colonoscopy -continue steroids, antibiotics. -GI-Dr. Tolbert is following. -hemoglobin is stable. -PRN pain medication. -continue IVF. Advanced diet as tolerated. -possible discharge in am. s
--- NOTE | 2021-03-26 18:28 | P.PN ---
Subjective Date of Service: 03/21/21 Chief Complaint: Crohn's disease flare up, LLQ pain, change in bowel habits / constipation Subjective: No new changes (Continued LLQ pain. Less nausea. Limited po intake.) Physical Examination - Vital Signs Temperature: 97.0 F Blood Pressure: 138/84 Pulse: 65 Respirations: 16 Pulse Ox (%): 95 Assessment And Plan - Current Problems (Diagnosis) (1) Crohn's disease Status: Acute (2) LLQ abdominal pain Status: Acute (3) Nausea Status: Acute (4) Change in bowel habits Status: Acute (5) Constipation Status: Acute (6) Hematochezia Status: Acute - Plan REC: 1) continue IVFs and IV antibiotics 2) continue IV steroids 3) continue prn pain medications and anti-emetics 4) await stool studies 5) colonoscopy Physician Review Additional Text: Problem List Crohn's flare with lower GI bleed / hematochezia Gastritis Depression h/o gastroschisis -status post endoscopy and colonoscopy -continue steroids, antibiotics. -GI-Dr. Tolbert is following. -hemoglobin is stable. -PRN pain medication. -continue IVF. Advanced diet as tolerated. -possible discharge in am. s
== END 2021-03-23 18:08 | disposition home or self-care (01) | DRG 392 ==
LOC: ER 06:48 → ERHOLD 16:20 → 4TH 20:10
PROVIDERS: ADMIT Internal Medicine Nephrology; ATTEND Hospitalist
PROC: 0DB78ZX Excision of Stomach, Pylorus, Via Natural or Artificial Opening Endoscopic, Diagnostic (ICD-10-PCS; 2021-03-18)
PROC: 0DBE8ZX Excision of Large Intestine, Via Natural or Artificial Opening Endoscopic, Diagnostic (ICD-10-PCS; 2021-03-22)
PROC: 0DBP8ZX Excision of Rectum, Via Natural or Artificial Opening Endoscopic, Diagnostic (ICD-10-PCS; principal; 2021-03-22 13:00)
DX: K29.70 Gastritis, unspecified, without bleeding (principal); K50.90 Crohn's disease, unspecified, without complications; K92.1 Melena; F32.9 Major depressive disorder, single episode, unspecified; K64.8 Other hemorrhoids; Z90.710 Acquired absence of both cervix and uterus; Z90.49 Acquired absence of other specified parts of digestive tract; Z91.09 Other allergy status, other than to drugs and biological substances; Z79.52 Long term (current) use of systemic steroids; Z79.899 Other long term (current) drug therapy; Z20.822 Contact with and (suspected) exposure to COVID-19
CPT/HCPCS: 36415; 74018; 74022; 74177; 80048; 80053; 80074; 80076; 81003; 81025; 82274; 83690; 83735; 85025; 87045; 87046; 88305; 88312; 96361; 96365; 96375; 99285; J0360; J0696; J0744; J1170; J1200; J2250; J2270; J2405; J2704; J2765; J2920; J2930; J7030; J7050; J7120; Q9967; U0003

== ENCOUNTER 2022-10-26 12:06 | Emergency (ER) | payer BC, OTHER ==
--- OUTSIDE RECORDS SUMMARY | 2022-10-26 12:11 | XMS REPORT | Continuity of Care Document ---
:1980 Author Organization [facility] t Address [address] [place] [address] Care Team Providers Name Role Phone Asked, No Pcp Primary Care Physician Unavailable ALLAN_Apurva_Bonita_PA Attending Clinician Unavailable KIRAN_SHO Attending Clinician Unavailable Tay_P Attending Clinician Unavailable Shield Attending Clinician Unavailable Warren Bajwa Attending Clinician WARREN BAJWA Attending Clinician Unavailable Evan NICOLE Attending Clinician Unavailable DR XOCHITL FAYE Attending Clinician Unavailable Alexandr Guerrero Attending Clinician ALLAN_Apurva_Bonita_BARBARA Admitting Clinician Unavailable TESSIE Admitting Clinician Unavailable Tay_P Admitting Clinician Unavailable Tung Admitting Clinician Unavailable WARREN BAJWA Admitting Clinician Unavailable Warren Bajwa Admitting Clinician DR XOCHITL FAYE Admitting Clinician Unavailable Markel Alvarez Admitting Clinician Payers Payer Name Policy Type Policy Number Effective Date Expiration Date Sejal villanueva [facility] [id number] 2020 00:00:00 [facility] [id number] 2021 [place] [id number] 2018 [place]PPO[place] 00:00:00 BLUE ADVANTAGE [id number] O-MARKETPLACE - BCBS INDEMNITY/TRADITIO [id number] NAL CHOICE - AETNA Problems Condition Condition Condition Status Onset Resolution Last Treating Co mments Source Name Details Category Date Date Treatment Clinician Date Shoulder Shoulder Problem Active 2021-11 Azale a pain Pain 0-27 Orthope 00:00: dic 00 Sports Medicin e K95.89, K95.89, Diagnosis Active 2022-04-18 Memoria K31.0, K31.0, 1-10 15:24:00 l K44.9, K44.9, 00:00: Max K21.00, K21.00, 00 R13.10 OTH R13.10 OTH Active 12/06/2021 [facility] GASTRO-ESO GASTRO-ES Diagnosis Active 2020-112021-10-15 Memoria PHAGEAL OPHAGEAL - 09:47:00 l REFLUX REFLUX 00:00: [place] DISEASE DISEASE 00 WITH ES WITH ES Active 10/07/2021 [facility] Nontraumat Nontraumat Problem Active 2017-11 A zalea ic rotator ic Rotator 2-19 Or thope cuff tear Cuff Tear 00:00: dic 00 Sports Medicin e Impingemen Impingemen Problem Active 2017-11 A taya t syndrome t Syndrome 2-19 Or thope of left of Left 00:00: dic shoulder Shoulder 00 Sports region Region Medicin e Anterior Anterior Problem Active 2017-11 Yaw lomax to to 2-18 Orthope posterior Posterior 00:00: dic tear of Tear of 00 Sports superior Superior Medici n glenoid Glenoid e labrum of Labrum of left Left shoulder Shoulder Capsulitis Capsulitis Problem Active 2017-11 A taya 2-12 Orthope 00:00: dic 00 Sports Medicin e Pain of Pain of Problem Active 2017-11 Elisabeth left Left 2-12 Orthope shoulder Shoulder 00:00: dic joint Joint 00 Sports Medicin e Rotator Rotator Problem Active 2017-11 Elisabeth cuff Cuff 2- Orthope syndrome Syndrome 00:00: dic 00 Sports Medicin e Carpal Carpal Problem Active 2017-11 Elisabeth tunnel Tunnel 1- Orthope syndrome Syndrome 00:00: dic 00 Sports Medicin e Abdominal Abdominal Disease Active [facility] [address] BOWEL BOWEL Diagnosis Active 2014-01-14 [facility] oria OBSTRUCTIO OBSTRUCTIO 01-14 23:21:00 l N N Active 00:00: [place] 01/14/2014 00 [facility] 242.90 242.90 Diagnosis Active 2014-07-17 Me moria Active 12-30 14:44:00 l 12/30/2013 00:00: Melquiades huang [place] Final: Final: Problem 2014-01-24 Gennaro jonathon Abdominal Abdominal 00:23:55 l Pain, Pain, [place] Unspecifie Unspecifie d Site d Site 01/24/2014 [facility] Final: Final: Problem 2014-01-24 Gennaro jonathon Nausea Nausea 00:23:55 l with with [place] Vomiting Vomiting 01/24/2014 [facility] Complicati Problem Active 2022-01-16 M emoria on of Complicati 22:15:45 l surgical on of Max procedure surgical (disorder) procedure (disorder) Active Problem 01/16/2022 [facility] Gastroesop Problem Active 2022-01-16 M emoria hageal Gastroesop 22:15:45 l reflux hageal Max disease reflux with disease esophagiti with s esophagiti (disorder) s (disorder) Active Problem 01/16/2022 [facility] Gastroesop Gastroeso Problem Active 2022-01-16 Memoria hageal phageal 22:15:45 l reflux reflux Max disease disease (disorder) (disorder) Active Problem 01/16/2022 [facility] History of History Problem Active 2022-01-16 Memoria bariatric of 22:15:45 l surgical bariatric Debi nn procedure surgical (situation procedure ) (situation ) Active Problem 01/16/2022 [facility] Morbid Morbid Problem Active 2022-01-16 Mem oria obesity obesity 22:15:45 l (disorder) (disorder) He rmann Active Problem 01/16/2022 [facility] ILLNESS, ILLNESS, Diagnosis Active 2022-04-18 Memoria UNSPECIFIE UNSPECIFIE 15:24:00 l D D Active Max [facility] Allergies, Adverse Reactions, Alerts Allergy Allergy Status Severity Reaction(s) Onset Inactive Treating Comm ents Source Name Type Date Date Clinician NO KNOWN Allergy Active [facility] Social History Social Habit Start Date Stop Date Quantity Comments Source History of Cigarette Smoker [facility] tobacco use [facility] Social History 2021-10-07 2021-10-07 [facility] ermann 20:25:38 20:25:38 Alcohol intake 2016-06-23 2016-06-[address] [facility] [address] Berger es 00:00:00 00:00:00 [facility] Sex Assigned At 1980 [address] [facility] [address] Margarita golds 00:00:00 00:00:00 [facility] Smoking Status Start Date Stop Date Source Tobacco smoking consumption unknown [facility] Current every day smoker [facility] Medications Ordered Filled Start Stop Current Ordering Indication Dosage Frequency Signature Comments Components Source Medication Medication Date Date Medication? Clinician (SIG) Name Name pantoprazol No Notes: Gennaro jonathon e 1- Tablet l 22:30: should not [place] 00 be chewed or crushed. (Same as: Protonix) pantoprazol Yes 40 mg = 1 M emoria e 40 mg 1- tab, PO, l oral 17:54: Before Max enteric 00 Dinner, # coated 30 tab, 0 tablet Refill(s), Pharmacy: [facility] #[id number], 160.02, cm, 12/17/21 8:11:00 [employer], Height, 104.545, kg, 12/17/21 8:11:00 [employer], Weight acetaminoph Yes 500 mg = 1 Memoria en 500 mg - tab, PO, l oral 17:54: TID, PRN Max tablet. 00 Pain Score 1-3, X 7 day, # 24 tab, 0 Refill(s), Pharmacy: [facility] #[id number], 160.02, cm, 12/17/21 8:11:00 [employer], Height, 104.545, kg, 12/17/21 8:11:00 [employer], Weight Clonidine Yes 0.2 mg = 1 Me moria Hydrochlori - tab, PO, l de 0.2 MG 17:53: BID, # 60 Her herndon Oral Tablet 00 tab, 0 Refill(s), Pharmacy: [facility] #[id number], 160.02, cm, 12/17/21 8:11:00 [employer], Height, 104.545, kg, 12/17/21 8:11:00 [employer], Weight duloxetine No Notes: Memor ia 12-22 (Same as: l 15:00: Cymbalta) Max 00 (Do Not Crush) 1/2NS + KCL No Notes: Gennaro jonathon 20mEq/L 12-22 PREMIX IV l 1000ml 12:00: - Do Not [place] (Premix) 00 Alter 1,000 mL WASTE: F/P - Sink; E - Municipal Trash Bin tramadol No Notes: Not Mem oria hydrochlori 12-22 to exceed l de 50 MG 08:46: 400mg/day. Her herndon Oral Tablet 00 (Same As: Ultram) heparin No Notes: Memoria 5000 12-22 porcine l units/mL 06:00: heparin Melquiades n injectable 00 solution Famotidine No Notes: Memor ia 12-22 (Same as: l 03:00: Pepcid) Max 00 Can be dilute in 5-10cc NS IVP: Slow IV push over at least 2 minutes. Clonidine No Notes: Memori a -25 (Same As: l 23:00: Catapres) Clonazepam No Notes: Memor ia 25 (Same As: l 22:00: KlonoPIN) Hazardous Drug Group 3:Reproduc tive risk Hazardous Drug -- Refer to safe handling procedure PPE Matrix Labetalol No Notes: Memori a -25 (Same as: l 20:59: Normodyne, Trandate) Push over 2 minutes Give bolus over 2-3 minutes. Benadryl No Notes: Memoria 1-25 (Same as: l 20:54: Benadryl) Hydralazine No 5 mg, Memor ia 12-21 Route: IV, l 19:21: ONCE, Dosing Weight 104.545, kg, Start date: 12/21/21 13:21:00 [employer], Stop date: 12/21/21 13:21:00 [employer] Hydralazine No 5 mg, Memor ia 12-21 Route: IV, l 18:34: ONCE, Dosing Weight 104.545, kg, Start date: 12/21/21 12:34:00 [employer], Stop date: 12/21/21 12:34:00 [employer] ketOROLAC No IV, ONCE Gennaro jonathon (ANES) 12-21 l 17:48: glycopyrrol No Route: IV, Memoria ate (ANES) 12-21 Drug form: l 17:48: INJ, ONCE, Stop date: 12/21/21 11:48:00 [employer] neostigmine No Route: IV, Memoria (ANES) 1 Drug form: l 17:48: INJ, ONCE, Stop date: 12/21/21 11:48:00 [employer] heparin No Route: Memoria (ANES) 12-21 SUB-Q, l 16:23: Drug form: INJ, ONCE, Stop date: 12/21/21 10:23:00 [employer] promethazin 2021-0 No Route: IV, Memoria e (ANES) 12-21 Drug form: l 16:18: INJ, ONCE, Stop date: 12/21/21 10:18:00 [employer] dexamethaso No Route: IV, Memoria ne (ANES) 12-21 Drug form: l 16:13: INJ, ONCE, Stop date: 12/21/21 10:13:00 [employer] lidocaine 2021-0 No Route: IV, Me moria (ANES) 12-21 Drug form: l 16:08: INJ, ONCE, Stop date: 12/21/21 10:08:00 [employer] propofol 2021-0 No Route: IV, Mem oria (ANES) 12-21 Drug form: l 16:08: INJ, ONCE, Stop date: 12/21/21 10:08:00 [employer] rocuronium 2021-0 No Route: IV, M emoria (ANES) 12-21 Drug form: l 16:08: INJ, ONCE, Stop date: 12/21/21 10:08:00 [employer] succinylcho 2021-0 No Route: IV, Memoria line (ANES) 12-21 Drug form: l 16:08: INJ, ONCE, Stop date: 12/21/21 10:08:00 [employer] ceFAZolin 2021-0 No Route: IV, Me moria (ANES) 12-21 Drug form: l 16:08: INJ, ONCE, Stop date: 12/21/21 10:08:00 [employer] diphenhydrA 0 No Route: IV, Memoria MINE (ANES) 12-21 Drug form: l 16:03: INJ, ONCE, Stop date: 12/21/21 10:03:00 [employer] hydromorpho 2021-0 No Route: IV, Memoria ne (ANES) 12-21 Drug form: l 16:03: INJ, ONCE, Stop date: 12/21/21 10:03:00 [employer] midazolam 2021-0 No Route: IV, Me moria (ANES) 12-21 Drug form: l 15:58: SOLN, [place] 00 ONCE, Stop date: 12/21/21 9:58:00 [employer] fentaNYL 2021-0 No Route: IV, Mem oria (ANES) 12-21 Drug form: l 15:58: INJ, ONCE, Stop date: 12/21/21 9:58:00 [employer] famotidine No Route: IV, M emoria (ANES) 12-21 Drug form: l 15:58: INJ, ONCE, Stop date: 12/21/21 9:58:00 [employer] ondansetron No Route: IV, Memoria (ANES) 12-21 Drug form: l 15:58: INJ, ONCE, Stop date: 12/21/21 9:58:00 [employer] Labetalol 2021-0 No 10 mg, Memori a 12-21 Route: l 15:56: IVP, Max 00 Q5Min, Dosing Weight 104.545, kg, PRN Elevated BP, Start date: 12/21/21 9:56:00 [employer], Duration: 5 doses or times, Stop date: Limited # of times Metoprolol 2021-0 No 1 mg, Memori a 12-21 Route: l 15:56: IVP, [place] 00 Q5Min, Dosing Weight 104.545, kg, PRN Other -See Comment, Start date: 12/21/21 9:56:00 [employer], Duration: 5 doses or times, Stop date: Limited # of times Morphine 2021-0 No 1 mg, Memoria 12-21 Route: l 15:56: IVP, [place] 00 Q5Min, Dosing Weight 104.545, kg, PRN Pain Score 4-6, Start date: 12/21/21 9:56:00 [employer], Duration: 5 doses or times, Stop date: Limited # of times Hydromorpho 2021-0 No 0.5 mg, Mem oria ne 12-21 Route: l 15:56: IVP, Max 00 Q5Min, Dosing Weight 104.545, kg, PRN Pain Score 7-10, Start date: 12/21/21 9:56:00 [employer], Duration: 4 doses or times, Stop date: Limited # of times Flumazenil 2021-0 No 0.2 mg, Gennaro jonathon 12-21 Route: l 15:56: IVP, PRN, Dosing Weight 104.545, kg, PRN Benzodiaze pine Reversal, Initial dose, Start date: 12/21/21 9:56:00 [employer], Duration: 30 day, Stop date: 01/20/22 9:55:00 [employer] Naloxone 0 No 0.4 mg, Memori a 12-21 Route: l 15:56: IVP, Q2MIN, Dosing Weight 104.545, kg, PRN Narcotic Reversal, Start date: 12/21/21 9:56:00 [employer], Duration: 8 doses or times, Stop date: Limited # of times Diphenhydra 2021-0 No 12.5 mg, Me moria mine 12-21 Route: l 15:56: IVP, Drug form: INJ, Q6H, Dosing Weight 104.545, kg, PRN Itching, Start date: 12/21/21 9:56:00 [employer], Duration: 30 day, Stop date: 01/20/22 9:55:00 [employer] Ondansetron 0 No 4 mg, Memor ia 12-21 Route: l 15:56: IVP, ONCE, Dosing Weight 104.545, kg, PRN Nausea & Vomiting, Start date: 12/21/21 9:56:00 [employer] Promethazin No 6.25 mg, Me moria e 12-21 Route: l 15:56: IVPB, ONCE, Dosing Weight 104.545, kg, PRN Nausea & Vomiting, Start date: 12/21/21 9:56:00 [employer] Lactated No Route: IV, Mem oria Ringers 12-21 Total l Injection 15:23: Volume: Debi nn IV (ANES) 00 1,000, 1000 mL Start date: 12/21/21 9:23:00 [employer], Stop date: 12/21/21 10:23:00 [employer] Morphine No Notes: Memoria 1-25 (Same l 14:46: as:MORPhin e Sulfate) Demerol HCl No Notes: Gennaro jonathon 12-21 (Same as: l 14:46: Demerol) "Use Precaution in Elderly, Seizure disorders, and Renal impairment " Acetaminoph No Notes: Max Memoria en -25 acetaminop l 14:46: hen 4000 Max 00 mg/day (4 gm/day). (Same as: Tylenol Extra Strength) ketOROLAC No 4 days Memor ia 30 mg/mL 12-21 l injectable 14:46: MEDICATION H ermann solution 00 WASTE Product Size: 30 mg Product Wasted: ___ mg Zofran No Notes: Memoria 125 (Same as: l 14:46: Zofran) [place] 00 MEDICATION WASTE Product Size: 4 mg Product Wasted: ___ mg 72 HR No Notes: Memoria Scopolamine 12-21 Remove old l 0.0139 14:46: patch Max MG/HR 00 before Transdermal applicatio Patch n of new patch Change patch every 72 hours (Same as: Transderm- Scop) 1/2NS + KCL No Notes: Gennaro jonathon 20mEq/L 12-21 PREMIX IV l 1000ml 14:46: - Do Not Max (Premix) 00 Alter 1,000 mL WASTE: F/P - Sink; E - Municipal Trash Bin Saline No Notes: Memoria Flush 0.9% 12-21 preservati l 14:46: ve free. Max 00 Cefazolin No Notes: Memori a -25 Same as: l 05:00: Ancef [place] heparin No Notes: Memoria -25 porcine l 05:00: heparin Max tramadol Yes 50 mg = 1 Gennaro jonathon hydrochlori 1-14 tab, PO, l de 50 MG 14:55: BID, X 15 Herm lilibeth Oral Tablet 00 day, # 30 tab, 0 Refill(s) Ondansetron Yes 4 mg = 1 Me moria 4 MG Oral 1-14 tab, PO, l Tablet 14:55: Q6H, PRN [place] [Zofran] 00 Nausea/Vom iting, X 8 day, # 30 tab, 0 Refill(s) pantoprazol 2020-11 Yes 40 mg, IV, Memoria e 40 mg 1-11 Daily, 0 l intravenous 20:25: Refill(s) H ermann injection 00 Clonidine 2020-11 Yes 0.2 mg = 1 Me moria Hydrochlori -11 tab, PO, l de 0.2 MG 20:24: BID, 0 Melquiades n Oral Tablet 00 Refill(s) DULoxetine 2020-11 Yes 20 mg = 1 Me moria 20 mg oral 12-07 cap, PO, l delayed 20:24: BID, 0 Max release 00 Refill(s) capsule clonazePAM 2020-11 Yes 1 mg = 1 Mem oria 1 mg oral 12-07 tab, PO, l tablet 20:24: TID, 0 Max 00 Refill(s) sertraline Yes 25mg QD Take [address] (ZOLOFT) 25 7-29 by mouth Luke s MG tablet 16:25: daily. Medica [address] esomeprazol Yes 20mg QD Take [address] [facility] [facility] (NEXIUM) 7 by mouth [facility] 20 MG 16:25: daily. Medical [address] sertraline Yes 25mg QD Take [address] (ZOLOFT) 25 7-29 by mouth Luke s MG tablet 16:25: daily. [address] esomeprazol Yes 20mg QD Take [address] [facility] (NEXIUM) 729 by mouth [facility] 20 MG 16:25: daily. Medical [address] Ondansetron Yes 4 mg = 1 Me moria 4 MG 2-19 tab, PO, l Disintegrat 09:32: BID, Melquiades n ing Tablet 00 Nausea and [Zofran] Vomiting, Dissolve tab under tongue, # 10 tab, 0 Refill(s)D issolve tab under tongue Acetaminoph Yes 1-2 tab, Me moria en 325 MG / 2-19 PO, Q4-6H, l Hydrocodone 09:32: Pain, # 15 Max Bitartrate 00 tab, 0 5 MG Oral Refill(s) Tablet [[place] 5/325] Acetaminoph No 1 tab, Gennaro jonathon en 325 MG / 2-19 Route: PO, l Hydrocodone 07:57: Dosing Herm lilibeth Bitartrate 00 Weight 70, 5 MG Oral kg, ONCE, Tablet Start [[place] date: ] 01/15/14 1:57:00, Stop date: 01/15/14 1:57:00 Iohexol 2014-0 No 100 mL, Memoria 2-19 Route: l 05:46: IVP, Drug Max Form: SOLN, Dosing Weight 70, kg, ONCALL, STAT, Start date: 01/14/14 23:46:00, Duration: 1 doses or times, Stop date: 01/16/14 0:00:00, Dose = 2.2ml/kg, Max dose = 100ml -- "To be infused by Radiology Staff ONLY"(Same as:Omnipaq [address]). Benadryl 2014-0 No 25 mg, 0.5 Mem oria 2-19 mL, Route: l 05:41: IVP, Drug Max form: INJ, ONCE, Dosing Weight 70, kg, Priority: STAT, Start date: 01/14/14 23:41:00, Stop date: 01/14/14 23:41:00(S ron as: Benadryl) Benadryl 2014-0 No 25 mg, 0.5 Mem oria 2-19 mL, Route: l 05:39: IVP, Drug Max form: INJ, ONCE, Dosing Weight 70, kg, Priority: STAT, Start date: 01/14/14 23:39:00, Stop date: 01/14/14 23:39:00(S ron as: Benadryl) Zofran 2014-0 No 4 mg, Memoria 2-19 Route: l 05:29: IVP, Drug Max form: INJ, ONCE, Dosing Weight 70, kg, Priority: STAT, Start date: 01/14/14 23:29:00, Stop date: 01/14/14 23:29:00 Dilaudid 2014-0 No 1 mg, Memoria 2-19 Route: IV, l 05:29: ONCE, Max 00 Dosing Weight 70, kg, Start date: 01/14/14 23:29:00, Stop date: 01/14/14 23:29:00 D5W 1/2NS + 2014-0 No 1,000 mL, M dior KCL 20mEq/L 2-19 Rate: 100 l 1000ml 05:23: ml/hr, Max (Premix) 00 Infuse 1,000 mL over: 10 hr, Route: IV, Dosing Weight 70 kg, Total Volume: 1,000, Start date: 01/14/14 23:23:00, Duration: 30 day, Stop date: 02/13/14 23:22:00PR EMIX IV - Do Not Alter clonazepam clonazepam No 1 BID clonazepam Elisabeth 2 mg 2 mg 2 mg Orthope disintegrat disintegrat disintegra dic ing tablet ing tablet ting Spo rts Place 1 Place 1 tablet Medicin tablet tablet Place 1 e twice a day twice a day tablet by by twice a translingua translingua day by l route. l route. translingu al route. duloxetine duloxetine No 1capsul Q1D duloxetine Elisabeth 60 mg 60 mg e(s) 60 mg Orthope capsule,del capsule,del capsule,de dic ayed ayed layed Sports release release release Medici n Take 1 Take 1 Take 1 e capsule capsule capsule every day every day every day by oral by oral by oral route. route. route. Xyzal 5 mg Xyzal 5 mg No 1 Q1D Xyzal 5 mg Elisabeth tablet Take tablet Take tablet Orthope 1 tablet 1 tablet Take 1 dic every day every day tablet Spo rts by oral by oral every day Medi mark route. route. by oral e route. Immunizations Ordered Immunization Filled Immunization Date Status Commen ts Source Name Name [id number] 2021-08-13 Completed Gennaro riadayo [id number] 00:00:00 Carol Ann mcelroy [id number] 2021-07-15 Completed Gennaro rial [id number] 00:00:00 Carol Ann mcelroy Vital Signs Vital Name Observation Time Observation Value Comments Source Systolic (mm Hg) 2021-12-31 18:38:00 Gennaro Santana Diastolic (mm Hg) 2021-12-31 18:38:00 Melany orichristine Santana Height 2021-12-31 18:38:00 160.02 cm Chapis Santana Weight 2021-12-31 18:38:00 [facility] Max BMI Calculated 2021-12-31 18:38:00 Memori al [place] Systolic (mm Hg) 2021-12-24 15:19:00 Gennaro rial Mxa Diastolic (mm Hg) 2021-12-24 15:19:00 Mem orial [place] Height 2021-12-24 15:19:00 160.02 cm Memorial Max Weight 2021-12-24 15:19:00 [facility] Max BMI Calculated 2021-12-24 15:19:00 Memori al [place] Temperature Oral (F) 2021-12-22 13:15:00 98.6 F [facility] Max Heart Rate 2021-12-22 13:15:00 [facility] [place] Respitory Rate 2021-12-22 13:15:00 Memori al Max Systolic (mm Hg) 2021-12-22 13:15:00 Gennaro rial Max Diastolic (mm Hg) 2021-12-22 13:15:00 Mem orial Max Heart Rate 2021-12-22 10:58:13 Memorial Max Respitory Rate 2021-12-22 10:58:13 Memori al [place] Systolic (mm Hg) 2021-12-22 10:57:57 Gennaro rial Max Diastolic (mm Hg) 2021-12-22 10:57:57 Mem orial [place] Heart Rate 2021-12-22 10:57:57 [facility] Max Temperature Oral (F) 2021-12-22 10:57:45 98.3 F [facility] Max Respitory Rate 2021-12-22 07:03:15 Memori al Max Systolic (mm Hg) 2021-12-22 07:03:05 Gennaro rial Max Diastolic (mm Hg) 2021-12-22 07:03:05 Mem orial Max Temperature Oral (F) 2021-12-22 07:02:50 98.6 F [facility] [place] Heart Rate 2021-12-17 14:28:00 [facility] Max Systolic (mm Hg) 2021-12-17 14:28:00 Gennaro rial [place] Diastolic (mm Hg) 2021-12-17 14:28:00 Mem orial Max Height 2021-12-17 14:11:00 160.02 cm [facility] [place] Weight 2021-12-17 14:11:00 [facility] [place] BMI Calculated 2021-12-17 14:11:00 Memori al Max Systolic (mm Hg) 2021-12-10 14:41:00 Gennaro rial [place] Diastolic (mm Hg) 2021-12-10 14:41:00 Mem orial Max Height 2021-12-10 14:41:00 160.02 cm [facility] [place] Weight 2021-12-10 14:41:00 [facility] [place] BMI Calculated 2021-12-10 14:41:00 Memori al [place] Temperature Oral (F) 2021-10-07 20:26:00 98.5 F [facility] Max Heart Rate 2021-10-07 20:26:00 [facility] [place] Systolic (mm Hg) 2021-10-07 20:26:00 Gennaro rial Max Diastolic (mm Hg) 2021-10-07 20:26:00 Mem orial [place] Weight 2021-10-07 20:26:00 [facility] [place] Height 2021-10-07 20:26:00 160.02 cm [facility] Max BMI Calculated 2021-10-07 20:26:00 Memori al Max Systolic (mm Hg) 2014-01-15 09:03:00 Gennaro rial [place] Diastolic (mm Hg) 2014-01-15 09:03:00 Mem orial [place] Heart Rate 2014-01-15 09:03:00 [facility] [place] Respitory Rate 2014-01-15 09:03:00 Memori al Max Temperature Oral (F) 2014-01-15 09:03:00 97.9 F [facility] [place] Respitory Rate 2014-01-15 06:53:00 Memori al Max Heart Rate 2014-01-15 06:53:00 [facility] [place] Systolic (mm Hg) 2014-01-15 06:53:00 Gennaro rial Max Temperature Oral (F) 2014-01-15 06:53:00 97.7 F [facility] [place] Diastolic (mm Hg) 2014-01-15 06:53:00 Mem orial Max Respitory Rate 2014-01-15 04:25:00 Memori al [place] Temperature Oral (F) 2014-01-15 04:25:00 98.4 F [facility] [place] BMI Calculated 2014-01-15 04:25:00 Memori al Max Weight 2014-01-15 04:25:00 [facility] Max Height 2014-01-15 04:25:[address] [facility] 2014-01-15 04:25:00 [facility] [place] Systolic (mm Hg) 2014-01-15 04:25:00 Gennaro sage [place] Diastolic (mm Hg) 2014-01-15 04:25:00 Mem orial [place] Procedures Procedure Date / Time Performing Clinician Source Performed XR, shoulder, 2 or more 2022-09-22 00:00:00 [place] Emergency department visit 2014-01-15 06:00:00 [facility] for the evaluation and management of a patient, which requires these 3 saunders components within the constraints imposed by the urgency of the patient's clinical condition and/or mental status: A comprehensive history; A comprehensi Injection or Infusion of 2014-01-15 06:00:00 Mem orial Max Other Therapeutic or Prophylactic Substance Intravenous infusion, for 2014-01-15 06:00:00 Az morial [place] therapy, prophylaxis, or diagnosis (specify substance or drug); initial, up to 1 hour Therapeutic, prophylactic, 2014-01-15 06:00:00 M [facility] [place] or diagnostic injection (specify substance or drug); each additional sequential intravenous push of a new substance/drug (List separately in addition to code for primary procedure) section [facility] n PRICILA - Total abdominal [facility] ermann hysterectomy Laparoscopic sleeve [facility] herndon gastrectomy Endoscopic sleeve [facility] nn gastroplasty Shoulder Surgery [facility] Hysterectomy El[facility]abeth [facility] Gastric Bypass [facility] Cholecystectomy [facility] Appendectomy El[facility] Plan of Care Planned Activity Planned Date Details Comments Source Future Scheduled 2022-09-28 [facility] 18:54:11 VACCINES (1 of 3 - 3-dose series) [code = HEPATITIS B VACCINES (1 of 3 - 3-dose series)] Future Scheduled 2022-09-28 COVID-19 VACCINE [facility] Test 18:54:11 (#1) [code = COVID-19 VACCINE (#1)] Future Scheduled 2022-09-28 [facility] 18:54:11 malignant neoplasm of cervix (procedure) [code = 807261949] Future Scheduled 2022-09-28 INFLUENZA VACCINE [facility] 18:54:11 [code = INFLUENZA VACCINE] Future Scheduled 2022-07-26 [facility] 16:01:28 VACCINES (1 of 3 - 3-dose series) [code = HEPATITIS B VACCINES (1 of 3 - 3-dose series)] Future Scheduled 2022-07-26 COVID-[address] [facility] Test 16:01:28 (#1) [code = COVID-19 VACCINE (#1)] Future Scheduled 2022-07-26 [facility] 16:01:28 malignant neoplasm of cervix (procedure) [code = 282868101] Future Scheduled 2022-07-26 [facility]:01:28 [code = INFLUENZA VACCINE] Encounters Start End Encounter Admission Attending Care Care Encounter Source Date/Time Date/Time Type Type Clinicians Facility Department ID 2022-09-19 Outpatient [facility] [id number] [place] 16:32:33 [id number] [facility] 2022-10-24 2022-10-24 Outpatient FOG_Sannes_ AOSM AOSM [id number] Elisabeth 00:00:00 00:00:00 Yonatan [id number] [facility] 2022-09-22 2022-09-22 Outpatient FOG_Sannes_ AOSM AOSM [id number] Elisabeth 00:00:00 00:00:00 Yonatan [id number] [facility] 2022-09-22 2022-09-22 [place] [place] - Ortho Elisabeth 00:00:00 00:00:00 Luba Mixon [place]: [id number] FOG_Ofc dic [facility], Medici n [address], [place] [address] , Ph. [phone] 2022-09-19 2022-09-19 Outpatient FOG_Sannes_ AOSM AOSM [id number] Elisabeth 00:00:00 00:00:00 Yonatan [id number] [facility] 2022-06-08 2022-06-08 Outpatient EUGENIE ADKINS [facility] 704 [place] 08:48:00 08:48:00 _LINDSAY 0713 da [facility] Outre h Program 2022-04-05 2022-04-05 Outpatient Francisco_P VFP VFP [id number] [facility] 12:33:00 12:33:00 [id number] Family Practic e 2022-04-05 2022-04-05 Outpatient Francisco_P VFP VFP 224 [id number] [facility] 12:33:00 12:33:00 [id number] Family Practic e 2022-04-05 2022-04-05 Outpatient Shield MMG MMG [id number] [place] 10:17:00 10:17:00 0510 da [facility] 2022-01-14 2022-01-14 [place] [id number] Mem[place] 14:00:00 14:00:00 Pre-Reg r Bariatric 05 l Surgery [facility] 2022-01-14 2022-01-14 Outpatient ROBINSONIE IE [id number] Memoria 08:00:00 08:00:00 05 l [place] 2022-01-14 2022-01-14 [facility] [id number] 08:00:00 08:00:00 Warren 05 2022-01-07 2022-01-07 [place] [id number] Memoria 15:00:00 15:00:00 Pre-Reg r Bariatric 04 l Surgery [facility] 2022-01-07 2022-01-07 Outpatient HARRIS IE [id number] Memoria 09:00:00 09:00:00 04 l [place] 2022-01-07 2022-01-07 Outpatient Aydee, MG [place] [id number] 09:00:00 09:00:00 Warren 04 2021-12-31 2022-01-01 [place] [id number] Memoria 16:45:00 05:59:59 r Bariatric 03 l Surgery [facility] 2021-12-31 2021-12-31 [facility] [id number] 10:45:00 23:59:59 Warren 03 2021-12-31 2021-12-31 Outpatient MHIE IE [id number] Memoria 10:45:00 10:45:00 03 l [place] 2021-12-24 2021-12-25 Outpatient nullFlavo [facility] [id number] Memoria 15:30:00 05:59:59 r Bariatric 02 l Surgery [facility] 2021-12-24 2021-12-24 Outpatient Aydee, [facility] [id number] 09:30:00 23:59:59 Warren 2021-12-24 2021-12-24 Outpatient MHIE IE [id number] Memoria 09:30:00 09:30:00 02 dayo [place] 2021-12-21 2021-12-22 Inpatient nullFlavo [place] [id number] Memoria 12:03:00 19:54:00 r Max 02 l [facility] 2021-12-21 2021-12-22 Inpatient AYDEE, [facility] EILEEN [id number] Memoria 06:03:00 13:54:00 WARREN l [facility] 2021-12-21 2021-12-22 Outpatient Aydee, [facility] [id number] 06:03:00 13:54:00 Warren 02 2021-12-21 2021-12-21 Outpatient Aydee, [facility] [id number] 09:30:00 09:30:00 Warren 2021-12-10 2021-12-11 Outpatient nullFlavo [facility] [id number] Memoria 14:45:00 05:59:59 r Bariatric 01 l [facility] 2021-12-10 2021-12-10 Outpatient Aydee, [facility] [id number] 08:45:00 23:59:59 Warren 2021-12-10 2021-12-10 Outpatient MHIE IE [id number] Memoria 08:45:00 08:45:00 01 l Max 2021-10-15 2021-10-15 Outpatient AYDEE, [facility] EILEEN [id number] Memoria 09:38:00 14:30:00 [facility] 2021-10-07 2021-10-08 Outpatient nullFlavo [facility] [id number] Memoria 20:45:00 05:59:59 r Bariatric 00 l Surgery Max Valero 2021-10-07 2021-10-07 Outpatient Aydee [facility] [id number] 14:45:00 23:59:59 Warren 00 2021-10-07 2021-10-07 Outpatient ROBINSONMELISSA GUTHRIE [facility] [id number] Memoria 14:45:00 14:45:00 00 l [place] 2021-10-04 2021-10-04 Outpatient COREY SejalOnelia [facility] [id number] [facility] 16:05:50 16:43:08 [facility] 2021-07-23 2021-07-23 Outpatient Shield MMG MMG [id number] [place] 03:41:00 03:41:00 0827 Medical Group 2020-08-27 2020-08-27 Outpatient Shield MMG MMG [id number] [place] 03:34:00 03:34:00 1001 Medical Group 2020-04-01 2020-04-01 Outpatient Mariana MMG MMG [id number] [place] 12:12:00 12:12:00 0506 Medical Group 2017-09-01 2017-09-01 Outpatient Pako YUNIER [facility] [id number] [place] 05:08:00 09:01:00 XOCHITL [facility] 2014-01-15 2014-01-15 EC nullFlavo [facility] [id number]_3 Memoria 04:24:00 09:43:00 Emergency r Max [id number] [address] 2014-01-14 2014-01-15 Outpatient Guerrero, [id number] 22:24:00 03:43:00 Alexandr Jain [id number] [id number] 2014-01-15 Emergency nullFlavo [facility] [id number] Memoria 21:07:00 03:43:[address] Results Test Description Test Time Test Comments Results Result Comments Source CHEM [facility] 2021-12-22 11:20:00 Test Item Value Reference Range Interpretation Comme nts Glucose Lvl (test code = Glucose Lvl) 99 70-99 [facility]2022-01-26 11:20:00 Test Item Value Reference Range Interpretation Comments BUN (test code = BUN) 7 7-22 [place] 164922-01-26 11:20:00 Test Item Value Reference Range Interpretation Comments Creatinine Lvl (test code = Creatinine 0.56 0.50-1.40 Lvl) [place] 164922-01-26 11:20:00 Test Item Value Reference Range Interpretation Comments Sodium Lvl (test code = Sodium Lvl) 140 135-145 [place] 164922-01-26 11:20:00 Test Item Value Reference Range Interpretation Comments Potassium Lvl (test code = Potassium 4.4 3.5-5.1 Lvl) [facility]2022-01-26 11:20:00 Test Item Value Reference Range Interpretation Comments Chloride Lvl (test code = Chloride Lvl) 110 95-109 [place] 164922-01-26 11:20:00 Test Item Value Reference Range Interpretation Comments CO2 (test code = CO2) 24 24-32 [facility]2022-01-26 11:20:00 Test Item Value Reference Range Interpretation Comments Calcium Lvl (test code = Calcium Lvl) 8.6 8.5-10.5 [place] 164922-01-26 11:20:00 Test Item Value Reference Range Interpretation Comments Albumin Lvl (test code = Albumin Lvl) 3.1 3.5-5.0 [place] 164922-01-26 11:20:00 Test Item Value Reference Range Interpretation Comments ALT (test code = ALT) 38 See_Comment [Auto mated message] The system which ge nerated this result transmit carol reference range : <=65. The reference range was not used to interpr et this result as geri l/abnormal. [facility]2022-01-26 11:20:00 Test Item Value Reference Range Interpretation Comments AST (test code = AST) 15 See_Comment [Auto mated message] The system which ge nerated this result transmit carol reference range : <=37. The reference range was not used to interpr et this result as geri l/abnormal. [facility]2022-01-26 11:20:00 Test Item Value Reference Range Interpretation Comments AGAP (test code = AGAP) 10.4 10.0-20.0 [place] 164922-01-26 11:20:00 Test Item Value Reference Range Interpretation Comments B/C Ratio (test code = B/C Ratio) 12 1 6-25 [place] 164922-01-26 11:20:00 Test Item Value Reference Range Interpretation Comments eGFR (test code = eGFR) 118 [place] 164922-01-26 11:20:00 Test Item Value Reference Range Interpretation Comments Total Protein (test code = Total 6.3 6.4-8.4 Protein) [place] 164922-01-26 11:20:00 Test Item Value Reference Range Interpretation Comments Alk Phos (test code = Alk Phos) 176 39-136 [place] 164922-01-26 11:20:00 Test Item Value Reference Range Interpretation Comments Bili Total (test code = Bili Total) 0.3 0.2-1.3 [place] 164922-01-26 11:20:00 Test Item Value Reference Range Interpretation Comments Globulin (test code = Globulin) 3.2 2.7-4.2 [place] 164922-01-26 11:20:00 Test Item Value Reference Range Interpretation Comments A/G Ratio (test code = A/G Ratio) 1.0 1 0.7-1.6 [place] 389352-01-26 11:20:00 Test Item Value Reference Range Interpretation Comments Segs (test code = Segs) 75.9 45.0-75.0 [place] 389352-01-26 11:20:00 Test Item Value Reference Range Interpretation Comments Lymphocytes (test code = Lymphocytes) 15.6 20.0-40.0 [place] 389352-01-26 11:20:00 Test Item Value Reference Range Interpretation Comments Monocytes (test code = Monocytes) 5.9 2.0-12.0 [place] 389352-01-26 11:20:00 Test Item Value Reference Range Interpretation Comments Eosinophils (test code = 2.3 See_Comment [A utomated message] The Eosinophils) system which ge nerated this result tra nsmitted reference range : <=4.0. The reference r ramon was not used to int erpret this result as normal/abnormal . [facility] CampusDpdttcjCRPREZCOLZ9499-97-73 11:20:00 Test Item Value Reference Range Interpretation Comments Basophils (test code = 0.3 See_Comment [Aut omated message] The Basophils) system which ge nerated this result tra nsmitted reference range : <=1.0. The reference r ramon was not used to int erpret this result as normal/abnormal . [facility] CampusUzvocnmKNQZGBGKZF0514-01-74 11:20:00 Test Item Value Reference Range Interpretation Comments Neutrophils # (test code = Neutrophils 7.0 1.5-8.1 #) [facility] CampusUrynuyhPIXOYFODIJ8774-21-43 11:20:00 Test Item Value Reference Range Interpretation Comments Lymphocytes # (test code = Lymphocytes 1.4 1.0-5.5 #) [facility] CampusFdxzkqnEWZFQUMDUO4652-00-97 11:20:00 Test Item Value Reference Range Interpretation Comments Monocytes # (test code 0.5 See_Comment [Aut omated message] The = Monocytes #) system which generated this result tra nsmitted reference range : <=0.8. The reference r ramon was not used to int erpret this result as normal/abnormal . [facility] CampusUqiaobuJQTXFGDHRY3825-51-80 11:20:00 Test Item Value Reference Range Interpretation Comments Eosinophils # (test code 0.2 See_Comment [A utomated message] The = Eosinophils #) system whic h generated this result tra nsmitted reference range : <=0.5. The reference r ramon was not used to int erpret this result as normal/abnormal . [facility] CampusHohfvmxLEMLPPHKPB8741-88-42 11:20:00 Test Item Value Reference Range Interpretation Comments Microcyte (test code = 2+ *ABN*(12/22/21 Microcyte) 5:20 AM) [place] 389352-01-26 11:20:00 Test Item Value Reference Range Interpretation Comments WBC (test code = WBC) 9.2 3.7-10.4 [place] 389352-01-26 11:20:00 Test Item Value Reference Range Interpretation Comments RBC (test code = RBC) 4.51 4.20-5.40 [place] 389352-01-26 11:20:00 Test Item Value Reference Range Interpretation Comments Hgb (test code = Hgb) 10.6 12.0-16.0 [facility]ToetqdgWFTDTRHYYQ6151-48-23 11:20:00 Test Item Value Reference Range Interpretation Comments Hct (test code = Hct) 32.9 36.0-48.0 [facility] HospitalKxxxicnSWZCKFXJGB6819-63-26 11:20:00 Test Item Value Reference Range Interpretation Comments MCV (test code = MCV) 73.1 80.0-98.0 [facility] HospitalEqvfmdpOKHPQFMPYR4356-83-72 11:20:00 Test Item Value Reference Range Interpretation Comments MCH (test code = MCH) 23.5 pg 27.0-31.0 [facility] HospitalVqxegdgZGWXEYBEDY2330-24-55 11:20:00 Test Item Value Reference Range Interpretation Comments MCHC (test code = MCHC) 32.1 32.0-36.0 [facility] HospitalIvsgbydYUEHVXHVIZ6812-38-08 11:20:00 Test Item Value Reference Range Interpretation Comments RDW (test code = RDW) 15.5 11.5-14.5 [facility] HospitalSjmyoyeMHWZNRKLHR5539-10-55 11:20:00 Test Item Value Reference Range Interpretation Comments Platelet (test code = Platelet) 192 133-450 [facility] HospitalJxjgjdyJQLTAAUJTB8102-65-08 11:20:00 Test Item Value Reference Range Interpretation Comments MPV (test code = MPV) 8.8 7.4-10.4 [facility] [employer] [id number] 14:46:00 Test Item Value Reference Range Interpretation Comments ABO/Rh (test code = ABO/Rh) A NEG [facility] [employer] [id number] 14:46:00 Test Item Value Reference Range Interpretation Comments Antibody Scrn (test Negative (12/17/21 8:46 code = Antibody Scrn) AM) [facility] [employer] [id number] 14:46:00 Test Item Value Reference Range Interpretation Comments Glucose Lvl (test code = Glucose Lvl) 81 70-99 [facility] [employer] [id number] 14:46:00 Test Item Value Reference Range Interpretation Comments BUN (test code = BUN) 16 7-22 [facility] [employer] [id number] 14:46:00 Test Item Value Reference Range Interpretation Comments Creatinine Lvl (test code = Creatinine 0.75 0.50-1.40 Lvl) [facility] HospitalPet ReadyDAVID VILLE [address]135XILPV2004-13-09 14:46:00 Test Item Value Reference Range Interpretation Comments Sodium Lvl (test code = Sodium Lvl) 140 135-145 [facility]Play[facility] [id number] 14:46:00 Test Item Value Reference Range Interpretation Comments Potassium Lvl (test code = Potassium 4.3 3.5-5.1 Lvl) [place] 164922-01-21 14:46:00 Test Item Value Reference Range Interpretation Comments Chloride Lvl (test code = Chloride Lvl) 112 95-109 [facility] HospitalOx[facility] [id number] 14:46:00 Test Item Value Reference Range Interpretation Comments CO2 (test code = CO2) 27 24-32 [place] 164922-01-21 14:46:00 Test Item Value Reference Range Interpretation Comments Calcium Lvl (test code = Calcium Lvl) 8.7 8.5-10.5 [facility]Ox[facility] [id number] 14:46:00 Test Item Value Reference Range Interpretation Comments Albumin Lvl (test code = Albumin Lvl) 3.5 3.5-5.0 [facility] [id number] 14:46:00 Test Item Value Reference Range Interpretation Comments ALT (test code = ALT) 33 See_Comment [Auto mated message] The system which ge nerated this result transmit carol reference range : <=65. The reference range was not used to interpr et this result as geri l/abnormal. [facility] [id number] 14:46:00 Test Item Value Reference Range Interpretation Comments AST (test code = AST) 14 See_Comment [Auto mated message] The system which ge nerated this result transmit carol reference range : <=37. The reference range was not used to interpr et this result as geri l/abnormal. [facility] [id number] 14:46:00 Test Item Value Reference Range Interpretation Comments AGAP (test code = AGAP) 5.3 10.0-20.0 [facility]Ox[facility] [id number] 14:46:00 Test Item Value Reference Range Interpretation Comments B/C Ratio (test code = B/C Ratio) 21 1 6-25 [facility] [id number] 14:46:00 Test Item Value Reference Range Interpretation Comments eGFR (test code = eGFR) 101 [place] 164922-01-21 14:46:00 Test Item Value Reference Range Interpretation Comments Total Protein (test code = Total 7.5 6.4-8.4 Protein) [place] 164922-01-21 14:46:00 Test Item Value Reference Range Interpretation Comments Alk Phos (test code = Alk Phos) 186 39-136 [place] 164922-01-21 14:46:00 Test Item Value Reference Range Interpretation Comments Bili Total (test code = Bili Total) 0.4 0.2-1.3 [place] 164922-01-21 14:46:00 Test Item Value Reference Range Interpretation Comments Globulin (test code = Globulin) 4.0 2.7-4.2 [place] 164922-01-21 14:46:00 Test Item Value Reference Range Interpretation Comments A/G Ratio (test code = A/G Ratio) 0.9 1 0.7-1.6 [place] 15540-01-21 14:46:00 Test Item Value Reference Range Interpretation Comments Vit B1 Lvl (Bariatric) (test code = Vit 87 B1 Lvl (Bariatric)) [place] 389352-01-21 14:46:00 Test Item Value Reference Range Interpretation Comments WBC (test code = WBC) 7.6 3.7-10.4 [place] 389352-01-21 14:46:00 Test Item Value Reference Range Interpretation Comments RBC (test code = RBC) 4.75 4.20-5.40 [place] [address]78-01-21 14:46:00 Test Item Value Reference Range Interpretation Comments Hgb (test code = Hgb) 11.4 12.0-16.0 [place] [address]-01-21 14:46:00 Test Item Value Reference Range Interpretation Comments Hct (test code = Hct) 34.9 36.0-48.0 [place] [address]-01-21 14:46:00 Test Item Value Reference Range Interpretation Comments MCV (test code = MCV) 73.5 80.0-98.0 [place] 389352-01-21 14:46:00 Test Item Value Reference Range Interpretation Comments MCH (test code = MCH) 23.9 pg 27.0-31.0 [place] 389352-01-21 14:46:00 Test Item Value Reference Range Interpretation Comments MCHC (test code = MCHC) 32.6 32.0-36.0 [place] 389352-01-21 14:46:00 Test Item Value Reference Range Interpretation Comments RDW (test code = RDW) 16.0 11.5-14.5 [place] 389352-01-21 14:46:00 Test Item Value Reference Range Interpretation Comments Platelet (test code = Platelet) 204 133-450 [place] 389352-01-21 14:46:00 Test Item Value Reference Range Interpretation Comments MPV (test code = MPV) 9.1 7.4-10.4 [place] 389352-01-21 14:46:00 Test Item Value Reference Range Interpretation Comments Segs (test code = Segs) 49.4 45.0-75.0 [place] 389352-01-21 14:46:00 Test Item Value Reference Range Interpretation Comments Lymphocytes (test code = Lymphocytes) 39.2 20.0-40.0 [place] 389352-01-21 14:46:00 Test Item Value Reference Range Interpretation Comments Monocytes (test code = Monocytes) 7.7 2.0-12.0 [place] 389352-01-21 14:46:00 Test Item Value Reference Range Interpretation Comments Eosinophils (test code = 3.1 See_Comment [A utomated message] The Eosinophils) system which ge nerated this result tra nsmitted reference range : <=4.0. The reference r ramon was not used to int erpret this result as normal/abnormal . [place] 389352-01-21 14:46:00 Test Item Value Reference Range Interpretation Comments Basophils (test code = 0.6 See_Comment [Aut omated message] The Basophils) system which ge nerated this result tra nsmitted reference range : <=1.0. The reference r ramon was not used to int erpret this result as normal/abnormal . [place] 389352-01-21 14:46:00 Test Item Value Reference Range Interpretation Comments Neutrophils # (test code = Neutrophils 3.7 1.5-8.1 #) [facility] CampusEbqflocYYBCMVTHEJ8370-02-55 14:46:00 Test Item Value Reference Range Interpretation Comments Lymphocytes # (test code = Lymphocytes 3.0 1.0-5.5 #) [facility] C[id number] 14:46:00 Test Item Value Reference Range Interpretation Comments Monocytes # (test code 0.6 See_Comment [Aut omated message] The = Monocytes #) system which generated this result tra nsmitted reference range : <=0.8. The reference r ramon was not used to int erpret this result as normal/abnormal . [facility] CampusBfjfhodMZGIYOTDFZ4921-60-07 14:46:00 Test Item Value Reference Range Interpretation Comments Eosinophils # (test code 0.2 See_Comment [A utomated message] The = Eosinophils #) system whic h generated this result tra nsmitted reference range : <=0.5. The reference r ramon was not used to int erpret this result as normal/abnormal . [facility] CampusXpcbbfvINSJISCDHE9234-78-28 14:46:00 Test Item Value Reference Range Interpretation Comments Microcyte (test code = 2+ *ABN*(12/17/21 Microcyte) 8:46 AM) [facility] HospitalJylfagmLNZHGZJYPZ9785-12-87 14:21:00 Test Item Value Reference Range Interpretation Comments Coronavirus (COVID-19) Not Detected MELBA (test code = *NA*(12/17/21 8:21 AM) Coronavirus (COVID-19) MELBA) [facility] AND [id number] 07:22:59 Test Item Value Reference Range Interpretation Comments UA Sq Epi (test code = UA Sq Epi) Few /LPF [facility] AND [id number] 07:22:59 Test Item Value Reference Range Interpretation Comments UA WBC (test code = UA WBC) 0-2 /HPF [facility] AND [id number] 07:22:59 Test Item Value Reference Range Interpretation Comments UA RBC (test code = 6-10 /HPF See_Comment [Automa carol message] The UA RBC) system which ge nerated this result tra nsmitted reference range : <=2. The reference range was not used to interpr et this result as normal/abnormal . [facility] AND [id number] 07:22:59 Test Item Value Reference Range Interpretation Comments UA Bacteria (test code = UA Bacteria) rare [facility] AND [id number] 07:22:59 Test Item Value Reference Range Interpretation Comments UA Nitrite (test code Negative (01/15/2014 = UA Nitrite) 01:22:59 [place]) [facility] AND [id number] 07:22:59 Test Item Value Reference Range Interpretation Comments UA Blood (test code = Moderate UA Blood) *ABN*(01/15/2014 01:22:59 [place]) [facility] AND [id number] 07:22:59 Test Item Value Reference Range Interpretation Comments UA Urobilinogen (test code = UA 0.2 0.1-1.0 Urobilinogen) [facility] AND [id number] 07:22:59 Test Item Value Reference Range Interpretation Comments UA Ketones (test code Negative = UA Ketones) *NA*(01/15/2014 01:22:59 [place]) [facility] AND [id number] 07:22:59 Test Item Value Reference Range Interpretation Comments UA pH (test code = UA pH) 6.5 1 5.0-8.0 [facility] AND [id number] 07:22:59 Test Item Value Reference Range Interpretation Comments UA Protein (test code = Trace UA Protein) *ABN*(01/15/2014 01:22:59 [place]) [facility] AND [id number] 07:22:59 Test Item Value Reference Range Interpretation Comments UA Spec Grav (test code = UA Spec 1.010 1 Grav) [facility] AND [id number] 07:22:59 Test Item Value Reference Range Interpretation Comments UA Glucose (test code Negative (01/15/2014 = UA Glucose) 01:22:59 [place]) [facility] AND [id number] 07:22:59 Test Item Value Reference Range Interpretation Comments UA Turbidity (test code = Clear (01/15/2014 UA Turbidity) 01:22:59 [place]) [facility] AND [id number] 07:22:59 Test Item Value Reference Range Interpretation Comments UA Color (test code = Yellow *NA*(01/15/2014 UA Color) 01:22:59 [facility] [id number] 07:22:59 Test Item Value Reference Range Interpretation Comments UA Leuk Est (test Negative (01/15/2014 code = UA Leuk Est) 01:22:59 [place]) [facility] [id number] 07:22:59 Test Item Value Reference Range Interpretation Comments UA Bili (test code = Negative *NA*(01/15/2014 UA Bili) 01:22:59 [place] [id number] 07:22:02 Test Item Value Reference Range Interpretation Comments U Cocaine Scr (test Negative code = U Cocaine Scr) *NA*(01/15/2014 01:22:02 [place] [id number] 07:22:02 Test Item Value Reference Range Interpretation Comments U Benzodia Scr (test Negative code = U Benzodia Scr) *NA*(01/15/2014 01:22:02 [place] [id number] 07:22:02 Test Item Value Reference Range Interpretation Comments U Amph Scr (test code Negative *NA*(01/15/2014 = U Amph Scr) 01:22:02 [place] [id number] 07:22:02 Test Item Value Reference Range Interpretation Comments U Cannab Scr (test Negative code = U Cannab Scr) *NA*(01/15/2014 01:22:02 [place] [id number] 07:22:02 Test Item Value Reference Range Interpretation Comments U Opiate Scr (test Positive code = U Opiate Scr) *ABN*(01/15/2014 01:22:02 [place] [id number] 07:22:02 Test Item Value Reference Range Interpretation Comments UDS Note (test code = See Note 3(01/15/2014 UDS Note) 01:22:02 [place] [id number] 07:22:02 Test Item Value Reference Range Interpretation Comments U Phencyc Scr (test Negative code = U Phencyc Scr) *NA*(01/15/2014 01:22:02 [place] [id number] 07:22:02 Test Item Value Reference Range Interpretation Comments U Lexii Scr (test code Negative *NA*(01/15/2014 = U Lexii Scr) 01:22:02 [place] [id number] 07:22:02 Test Item Value Reference Range Interpretation Comments U Propoxyph Scr (test Negative code = U Propoxyph Scr) *NA*(01/15/2014 01:22:02 [place] [facility] [id number] 07:22:02 Test Item Value Reference Range Interpretation Comments U Methadone Scr (test Negative code = U Methadone Scr) *NA*(01/15/2014 01:22:02 [place] [employer] [id number] 05:20:00 Test Item Value Reference Range Interpretation Comments Antibody Scrn (test Negative (01/14/2014 code = Antibody Scrn) 23:20:00 [place] [employer] [id number] 05:20:00 Test Item Value Reference Range Interpretation Comments ABO/Rh (test code = ABO/Rh) A NEG [place] [id number] 04:53:00 Test Item Value Reference Range Interpretation Comments Phosphorus (test code = Phosphorus) 4.0 2.5-4.5 [place] [id number] 04:53:00 Test Item Value Reference Range Interpretation Comments Magnesium Lvl (test code = Magnesium 1.7 1.8-2.4 Lvl) [place] [id number] 04:53:00 Test Item Value Reference Range Interpretation Comments Lactic Acid Lvl (test code = Lactic 0.5 0.5-2.2 Acid Lvl) [place] [id number] 04:53:00 Test Item Value Reference Range Interpretation Comments Creatinine Lvl (test code = Creatinine 0.9 0.5-1.4 Lvl) [place] [id number] 04:53:00 Test Item Value Reference Range Interpretation Comments Sodium Lvl (test code = Sodium Lvl) 139 135-145 [place] [id number] 04:53:00 Test Item Value Reference Range Interpretation Comments Glucose Lvl (test code = Glucose Lvl) 82 70-99 [place] [id number] 04:53:00 Test Item Value Reference Range Interpretation Comments BUN (test code = BUN) 16 7-22 [facility]2014-02-19 04:53:00 Test Item Value Reference Range Interpretation Comments eGFR (test code = eGFR) 85 [facility]2014-02-19 04:53:00 Test Item Value Reference Range Interpretation Comments Potassium Lvl (test code = Potassium 3.6 3.5-5.1 Lvl) [facility]2014-02-19 04:53:00 Test Item Value Reference Range Interpretation Comments Calcium Lvl (test code = Calcium Lvl) 8.7 8.5-10.5 [facility]2014-02-19 04:53:00 Test Item Value Reference Range Interpretation Comments Chloride Lvl (test code = Chloride Lvl) 104 95-109 [facility]2014-02-19 04:53:00 Test Item Value Reference Range Interpretation Comments CO2 (test code = CO2) 28 24-32 [facility]2014-02-19 04:53:00 Test Item Value Reference Range Interpretation Comments Alk Phos (test code = Alk Phos) 121 39-136 [facility]2014-02-19 04:53:00 Test Item Value Reference Range Interpretation Comments ASPARTATE TRANSAMINASE 20 See_Comment [Aut omated message] (test code = ASPARTATE The s ystem which TRANSAMINASE) generated this result transmitted ref erence range: <=37. Th e reference range was not used to interpr et this result as normal/abnormal . [facility]2014-02-19 04:53:00 Test Item Value Reference Range Interpretation Comments Bili Total (test code = Bili Total) 0.3 0.2-1.3 [facility]2014-02-19 04:53:00 Test Item Value Reference Range Interpretation Comments Albumin Lvl (test code = Albumin Lvl) 3.7 3.5-5.0 [facility]2014-02-19 04:53:00 Test Item Value Reference Range Interpretation Comments Total Protein (test code = Total 6.9 6.4-8.4 Protein) [facility]2014-02-19 04:53:00 Test Item Value Reference Range Interpretation Comments ALANINE AMINOTRANSFERASE 32 See_Comment [A utomated message] (test code = ALANINE The sys tem which AMINOTRANSFERASE) generated this result transmitted ref erence range: <=65. Th e reference range was not used to int erpret this result as normal/abnormal . [facility]2014-02-19 04:53:00 Test Item Value Reference Range Interpretation Comments B/C Ratio (test code = B/C Ratio) 18 6-25 [facility]2014-02-19 04:53:00 Test Item Value Reference Range Interpretation Comments AGAP (test code = AGAP) 10.6 10.0-20.0 [facility]2014-02-19 04:53:00 Test Item Value Reference Range Interpretation Comments A/G Ratio (test code = A/G Ratio) 1.2 0.7-1.6 [facility]2014-02-19 04:53:00 Test Item Value Reference Range Interpretation Comments Globulin (test code = Globulin) 3.2 2.0-4.0 [facility] [id number] 04:53:00 Test Item Value Reference Range Interpretation Comments Eosinophils # (test code 0.2 See_Comment [A utomated message] The = Eosinophils #) system whic h generated this result tra nsmitted reference range : <=0.5. The reference r ramon was not used to int erpret this result as normal/abnormal . [facility] [id number] 04:53:00 Test Item Value Reference Range Interpretation Comments Basophils # (test code 0.0 See_Comment [Aut omated message] The = Basophils #) system which generated this result tra nsmitted reference range : <=0.2. The reference r ramon was not used to int erpret this result as normal/abnormal . [facility] [id number] 04:53:00 Test Item Value Reference Range Interpretation Comments Monocytes # (test code 0.3 See_Comment [Aut omated message] The = Monocytes #) system which generated this result tra nsmitted reference range : <=0.8. The reference r ramon was not used to int erpret this result as normal/abnormal . [facility] [id number] 04:53:00 Test Item Value Reference Range Interpretation Comments Eosinophils (test code = 2.4 See_Comment [A utomated message] The Eosinophils) system which ge nerated this result tra nsmitted reference range : <=4.0. The reference r ramon was not used to int erpret this result as normal/abnormal . [facility] [id number] 04:53:00 Test Item Value Reference Range Interpretation Comments Segs-Bands # (test code = Segs-Bands #) 4.8 1.5-8.1 [facility] [id number] 04:53:00 Test Item Value Reference Range Interpretation Comments Basophils (test code = 0.6 See_Comment [Aut omated message] The Basophils) system which ge nerated this result tra nsmitted reference range : <=1.0. The reference r ramon was not used to int erpret this result as normal/abnormal . [facility] [id number] 04:53:00 Test Item Value Reference Range Interpretation Comments Lymphocytes # (test code = Lymphocytes 1.9 1.0-5.5 #) [facility] [id number] 04:53:00 Test Item Value Reference Range Interpretation Comments Segs (test code = Segs) 67.1 45.0-75.0 [facility] [id number] 04:53:00 Test Item Value Reference Range Interpretation Comments Monocytes (test code = Monocytes) 4.0 2.0-12.0 [facility] [id number] 04:53:00 Test Item Value Reference Range Interpretation Comments Anisocyte (test code = 1+ *ABN*(01/14/2014 Anisocyte) 22:53:00 [place] [facility] [id number] 04:53:00 Test Item Value Reference Range Interpretation Comments Large Plt (test code = Slight *ABN*(01/14/2014 Large Plt) 22:53:00 [place] [id number] 04:53:00 Test Item Value Reference Range Interpretation Comments Lymphocytes (test code = Lymphocytes) 25.9 20.0-40.0 [facility] [id number] 04:53:00 Test Item Value Reference Range Interpretation Comments INR (test code = INR) 0.98 0.85-1.17 [facility] [id number] 04:53:00 Test Item Value Reference Range Interpretation Comments aPTT (test code = aPTT) 27.1 s 22.9-35.8 [facility] [id number] 04:53:00 Test Item Value Reference Range Interpretation Comments PROTIME (test code = PROTIME) 12.9 s 12.0-14.7 [facility] [id number] 04:53:00 Test Item Value Reference Range Interpretation Comments MCH (test code = MCH) 28.3 pg 27.0-31.0 [facility] [id number] 04:53:00 Test Item Value Reference Range Interpretation Comments RDW (test code = RDW) 12.6 11.5-14.5 [facility] [id number] 04:53:00 Test Item Value Reference Range Interpretation Comments MCHC (test code = MCHC) 34.9 32.0-36.0 [facility] [id number] 04:53:00 Test Item Value Reference Range Interpretation Comments Platelet (test code = Platelet) 209 133-450 [facility] CampusAtupakcVRLKVALSLQ0809-13-16 04:53:00 Test Item Value Reference Range Interpretation Comments Hct (test code = Hct) 38.7 36.0-48.0 [facility] [id number] 04:53:00 Test Item Value Reference Range Interpretation Comments Hgb (test code = Hgb) 13.5 12.0-16.0 [facility] [id number] 04:53:00 Test Item Value Reference Range Interpretation Comments MCV (test code = MCV) 81.1 81.0-99.0 [facility] [id number] 04:53:00 Test Item Value Reference Range Interpretation Comments WBC X 10x3 (test code = WBC X 10x3) 7.2 3.7-10.4 [facility] [id number] 04:53:00 Test Item Value Reference Range Interpretation Comments RBC X 10x6 (test code = RBC X 10x6) 4.77 4.20-5.40 [facility] [id number] 04:53:00 Test Item Value Reference Range Interpretation Comments MPV (test code = MPV) 10.0 7.4-10.4 [facility]
[2022-10-26 12:43] LABS: Absolute Lymphocytes (CBC) 2.1 K/uL (0.7-4.9); Hematocrit 37.8 % (36.0-45.0); Lymphocytes % 35.1 % (15.3-44.8); MCV 84.2 fL (80-100); MPV 8.8 fL (7.6-11.3); RBC Red Blood Cell Count 4.49 M/uL (3.86-4.86)
[2022-10-26] MEDS ORDERED: LORazepam 2 MG/ML VIAL ONE (12:59)
--- NOTE | 2022-10-26 13:24 | RAD REPORT ---
EXAM DESCRIPTION: CT - CTHCSPWOC - 10/26/2022 1:06 pm CLINICAL HISTORY: Trauma, head and neck injury. seizure, headache COMPARISON: No comparisons TECHNIQUE: Axial 5 mm thick images of the head were obtained. Axial 2 mm thick images of the cervical spine were obtained with sagittal and coronal reconstruction images generated and reviewed. All CT scans are performed using dose optimization technique as appropriate and may include automated exposure control or mA/KV adjustment according to patient size. FINDINGS: CT HEAD WITHOUT CONTRAST: No acute hemorrhage, hydrocephalus or extra-axial collection is identified.No areas of brain edema or midline shift. The paranasal sinuses and mastoids are clear.The calvarium is intact. CT CERVICAL SPINE WITHOUT CONTRAST: No fracture or subluxation.No prevertebral soft tissues swelling is identified. Thyromegaly. IMPRESSION: No acute intracranial or cervical spine findings.
[2022-10-26] MEDS ORDERED: METOCLOPRAMIDE 10 MG/2mL INJ ONE (13:29)
[2022-10-26] MEDS ORDERED: KETOROLAC 30 MG/ML INJ ONE (13:29)
[2022-10-26 13:53] LABS: Urine Blood Negative (Negative); Urine Glucose Negative (Negative); Urine Protein Negative (Negative); Urine pH 6.5 (5.0-7.0)
[2022-10-26 13:57] LABS: Protime INR 1.05
[2022-10-26 14:11] LABS: Barbiturates NEGATIVE (NEGATIVE); Benzodiazepines NEGATIVE (NEGATIVE); Cocaine NEGATIVE (NEGATIVE); METHAMPHETAM NEGATIVE (NEGATIVE); Methadone NEGATIVE (NEGATIVE); Opiates NEGATIVE (NEGATIVE); Phencyclidine NEGATIVE (NEGATIVE); THC Cannibis NEGATIVE (NEGATIVE)
[2022-10-26 14:14] LABS: Bicarbonate 28 mmol/L (21-32); Potassium 4.2 mmol/L (3.5-5.1); Sodium Level 138 mmol/L (136-145)
[2022-10-26 14:15] LABS: ALT/SGPT 17 U/L (12-78); AST/SGOT 12 U/L (15-37); Albumin 3.4 g/dL (3.4-5.0); Alkaline Phosphatase 110 U/L (45-117); BUN Blood Urea Nitrogen 11 mg/dL (7-18); Bilirubin Direct 0.2 mg/dL (0-0.2); Bilirubin Total 0.5 mg/dL (0.2-1.0); Glomerular Filtration Rate 114 ml/min (=/>90); Glucose Level 87 mg/dL (74-106); Protein, Total 6.8 g/dL (6.4-8.2)
[2022-10-26] MEDS ORDERED: FENTANYL CITR 100 MCG/2 ML ONE (15:56)
--- NOTE | 2022-10-26 16:00 | EDPHYS ---
Physician Documentation [facility] Name: Jovan Fregoso Age: 41 yrs Sex: Female : 1980 Arrival Date: 10/26/2022 Time: 12:19 Bed 24 Private MD: ED Physician Fern Snell HPI: 10/26 12:23 This 41 yrs old Female presents to ER via EMS with complaints of Seizure, Altered [facility] Mental Status. 12:23 This is a 41-year-old female with history of Crohn's endometriosis the presents emerged [facility] department with a witnessed seizure which occurred just prior to arrival. Seizure was witnessed by employees at [employer]. Seizure lasted approximately 2 to 5 minutes. Patient does not have a history of previous seizures. Complains of headache. Patient did injure her tongue. Denies other injury.. 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 - Social history:: Smoking status: Reported history of juuling and/or vaping. ROS: 12:23 Constitutional: Negative for fever, chills, and weight loss, Cardiovascular: Negative jmm for chest pain, palpitations, and edema, Respiratory: Negative for shortness of breath, cough, wheezing, and pleuritic chest pain. 12:23 Neuro: Positive for headache, seizure activity. 12:23 All other systems are negative. Exam: 12:23 Constitutional: This is a well developed, well nourished patient who is awake, alert, jmm and in no acute distress. Head/Face: atraumatic. Eyes: EOMI, no conjunctival erythema appreciated 12:23 Neck: Trachea midline, Supple Chest/axilla: Normal chest wall appearance and motion. Cardiovascular: Regular rate and rhythm. No edema appreciated Respiratory: Normal respirations, no respiratory distress appreciated Abdomen/GI: Non distended Back: Normal ROM Skin: General appearance color normal MS/ Extremity: Moves all extremities, no obvious deformities appreciated, no edema noted to the lower extremities Neuro: Awake and alert Psych: Behavior is normal, Mood is normal, Patient is cooperative and pleasant 12:23 ENT: Posterior pharynx: is normal. Vital Signs: 12:15 BP 139 / 92; Pulse 108; Resp 16; Temp 98.1; Pulse Ox 100% on R/A; tp1 14:21 BP 117 / 82; Pulse 70; Resp 16; Pulse Ox 100% ; tp1 15:59 BP 104 / 72; Pulse 73; Resp 16; Pulse Ox 100% on R/A; tp1 Pop Coma Score: 12:42 Eye Response: spontaneous(4). Verbal Response: oriented(5). Motor Response: obeys tp1 commands(6). Total: 15. MDM: 12:34 Patient medically screened. [facility] 15:58 Data reviewed: vital signs, nurses notes. Counseling: I had a detailed discussion with [facility] the patient and/or guardian regarding: the historical points, exam findings, and any diagnostic results supporting the discharge/admit diagnosis, the need for outpatient follow up, to return to the emergency department if symptoms worsen or persist or if there are any questions or concerns that arise at home. 19:19 ED course: Seizure activity not appreciated while in the ED. Patient's pain is [facility] relieved. CT was negative. Labs otherwise unremarkable. Patient given strict return precautions. Patient given seizure discharge precautions. Advised follow-up with neurology and otherwise given strict return precautions. Patient understood agrees plan of care.. 10/26 12:23 Order name: Acetaminophen; Complete Time: 14:27 [facility] 10/26 12:23 Order name: Basic Metabolic Panel; Complete Time: 14: [facility] 10/26 12:23 Order name: CBC with Diff; Complete Time: 13:24 [facility] 10/26 12:23 Order name: ETOH Level; Complete Time: 14:27 [facility] 10/26 12:23 Order name: Hepatic Function; Complete Time: 14:27 [facility] 10/26 12:23 Order name: PT-INR; Complete Time: 13:58 [facility] 10/26 12:23 Order name: Ptt, Activated; Complete Time: 13:58 [facility] 10/26 12:23 Order name: Salicylate; Complete Time: 13:24 [facility] 10/26 12:23 Order name: Urine Drug Screen; Complete Time: 14:27 [facility] 10/26 12:35 Order name: CT Head C Spine; Complete Time: 13:24 [facility] 10/26 13:53 Order name: Urine Dipstick-Ancillary; Complete Time: 13:57 [facility] 10/26 12:23 Order name: EKG; Complete Time: 12:24 [facility] 10/26 12:23 Order name: EKG - Nurse/Tech; Complete Time: 13:38 [facility] 10/26 12:23 Order name: IV Saline Lock; Complete Time: 12:38 [facility] 10/26 12:23 Order name: Labs collected and sent; Complete Time: 12:38 [facility] 10/26 12:23 Order name: Urine Dipstick-Ancillary (obtain specimen); Complete Time: 13:58 [facility] 10/26 12:53 Order name: Labs - recollect needed: recollect 2 green and 1 light blue; Complete Time: bd 13:56 Administered Medications: 13:00 Drug: Ativan (LORazepam) 0.5 mg Route: IVP; Site: right antecubital; tp1 16:00 Follow up: Response: No adverse reaction tp1 13:37 Drug: Ketorolac 30 mg Route: IVP; Site: right antecubital; tp1 14:00 Follow up: Response: Pain is decreased tp1 13:38 Drug: Reglan (metoCLOPramide) 10 mg Route: IVP; Site: right antecubital; tp1 14:00 Follow up: Response: Pain is decreased tp1 15:59 Drug: fentaNYL (PF) 25 mcg Route: IVP; Site: right antecubital; tp1 16:00 Follow up: Response: Medication administered at discharge. tp1 Disposition Summary: 10/26/22 15:59 Discharge Ordered Location: Home jmm Condition: Stable jmm Diagnosis - Other seizures jmm Followup: jmm - With: Kilo Crow MD - When: 1 - 2 days - Reason: Recheck today's complaints, Continuance of care, Re-evaluation by your physician Followup: jmm - With: Serg Bonilla MD - When: 1 - 2 days - Reason: Recheck today's complaints, Continuance of care, Re-evaluation by your physician Followup: jmm - With: Helder Garcia MD - When: 2 - 3 days - Reason: Recheck today's complaints, Continuance of care, Re-evaluation by your physician Discharge Instructions: - Discharge Summary Sheet jmm - Seizure, Adult jmm Forms: - Medication Reconciliation Form matteo - Thank You Letter matteo - Antibiotic Education matteo - Prescription Opioid Use matteo Signatures: Dispatcher [employer] EDMarj Petersen Joel, PA PA jmm Parker, Tiffany RN RN tp1 Corrections: (The following items were deleted from the chart) 13:58 12:23 Suicide Screening ([place]) ordered. matteo tp1
--- NOTE | 2022-10-26 16:00 | ER ---
Nurse's Notes [facility] Name: Jovan Fregoso Age: 41 yrs Sex: Female : 1980 Arrival Date: 10/26/2022 Time: 12:19 Bed 24 Private MD: Diagnosis: Other seizures Presentation: 10/26 12:15 Chief complaint: EMS states: Toned out to [facility] for seizure and altered mental status. tp1 PT reports not feeling well and pulling over. Bystandards report PT had a seizure for about 2-3 minutes. EMS reports on scene PT had altered mental status and no memory of what happened. 12 Lead sinus tach, BS 72. 20 G RAC, amdinistered NS 250 bolus. 12:15 Coronavirus screen: Vaccine status: Patient reports receiving the 2nd dose of the covid tp1 vaccine. Ebola Screen: Patient denies exposure to infectious person. Patient denies travel to an Ebola-affected area in the 21 days before illness onset. Initial Sepsis Screen: Does the patient meet any 2 criteria? HR > 90 bpm. No. Patient's initial sepsis screen is negative. Does the patient have a suspected source of infection? No. Patient's initial sepsis screen is negative. Risk Assessment: Do you want to hurt yourself or someone else? Patient reports no desire to harm self or others. Onset of symptoms was October 26, 2022. 12:15 Method Of Arrival: EMS: [facility] tp1 12:15 Acuity: AKIN 3 tp1 Triage Assessment: 12:42 General: Appears in no apparent distress. comfortable, Behavior is calm, cooperative. tp1 Pain: Complains of pain in head Pain does not radiate. Pain currently is 9 out of 10 on a pain scale. Quality of pain is described as sharp, Pain began 1 hour ago. Is continuous. EENT: No deficits noted. EENT: Reports nasal congestion. Neuro: Level of Consciousness is awake, alert, obeys commands, Oriented to person, place, time, situation. Cardiovascular: Patient's skin is warm and dry. Respiratory: Airway is patent Respiratory effort is even, unlabored. GI: Abdomen is flat, non-distended, Patient currently denies diarrhea, nausea, vomiting. : No signs and/or symptoms were reported regarding the genitourinary system. Derm: Skin is pink, warm \T\ dry. Musculoskeletal: Circulation, motion, and sensation intact. 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 - Social history:: Smoking status: Reported history of juuling and/or vaping. Screenin:57 Abuse screen: Denies threats or abuse. Denies injuries from another. Nutritional tp1 screening: No deficits noted. Tuberculosis screening: No symptoms or risk factors identified. Fall Risk None identified. Assessment: 12:15 Reassessment: see triage assessment. tp1 12:20 Reassessment: PT reports bilateral numbness in both feet, Cap refil <3 seconds, tp1 provider notified. 13:15 Reassessment: Patient appears in no apparent distress at this time. No changes from tp1 previously documented assessment. Patient and/or family updated on plan of care and expected duration. Pain level reassessed. Patient is alert, oriented x 3, equal unlabored respirations, skin warm/dry/pink. Critical care time stopped, patient has stabilized. continues to CO headache, provider notified . 14:21 Reassessment: Patient appears in no apparent distress at this time. No changes from tp1 previously documented assessment. Patient is alert, oriented x 3, equal unlabored respirations, skin warm/dry/pink. coninues to CO headache, states pain has decreased, pain rated 5/10. 15:46 Reassessment: Patient appears in no apparent distress at this time. No changes from tp1 previously documented assessment. Patient is alert, oriented x 3, equal unlabored respirations, skin warm/dry/pink. continues to CO head pain rated 4/10, provider notified. Vital Signs: 12:15 BP 139 / 92; Pulse 108; Resp 16; Temp 98.1; Pulse Ox 100% on R/A; tp1 14:21 BP 117 / 82; Pulse 70; Resp 16; Pulse Ox 100% ; tp1 15:59 BP 104 / 72; Pulse 73; Resp 16; Pulse Ox 100% on R/A; tp1 Pop Coma Score: 12:42 Eye Response: spontaneous(4). Verbal Response: oriented(5). Motor Response: obeys tp1 commands(6). Total: 15. ED Course: 12:19 Patient arrived in ED. tp1 12:23 Doug Ireland PA is PHCP. [facility] 12:23 Fern Snell MD is Attending Physician. jmm 12:37 Neha Kong, RN is Primary Nurse. tp1 12:42 Triage completed. tp1 12:42 Arm band placed on. tp1 12:46 Patient has correct armband on for positive identification. Bed in low position. Call tp1 light in reach. Side rails up X2. Client placed on continuous cardiac and pulse oximetry monitoring. NIBP monitoring applied. 12:46 Seizure precautions initiated. tp1 12:46 No provider procedures requiring assistance completed. Maintain EMS IV. Dressing tp1 intact. Good blood return noted. Site clean \T\ dry. Gauge \T\ site: 22 R AC. 13:08 CT Head C Spine In Process Unspecified. EDMS 15:58 Kilo Crow MD is Referral Physician. jmm 15:59 Serg Bonilla MD is Referral Physician. jmm 15:59 Helder Garcia MD is Referral Physician. jmm 16:15 IV discontinued, intact, bleeding controlled, No redness/swelling at site. Pressure tp1 dressing applied. Administered Medications: 13:00 Drug: Ativan (LORazepam) 0.5 mg Route: IVP; Site: right antecubital; tp1 16:00 Follow up: Response: No adverse reaction tp1 13:37 Drug: Ketorolac 30 mg Route: IVP; Site: right antecubital; tp1 14:00 Follow up: Response: Pain is decreased tp1 13:38 Drug: Reglan (metoCLOPramide) 10 mg Route: IVP; Site: right antecubital; tp1 14:00 Follow up: Response: Pain is decreased tp1 15:59 Drug: fentaNYL (PF) 25 mcg Route: IVP; Site: right antecubital; tp1 16:00 Follow up: Response: Medication administered at discharge. tp1 Medication: 13:57 VIS not applicable for this client. tp1 Outcome: 15:59 Discharge ordered by . [facility] 16:15 Discharged to home via ambulance, with family. tp1 16:15 Condition: good 16:15 Discharge instructions given to patient, Instructed on discharge instructions, follow up and referral plans. Demonstrated understanding of instructions, follow-up care. 16:15 Patient left the ED. tp1 Signatures: Dispatcher [employer] Doug Lanza PA PA jmm Parker, Tiffany, RN RN tp1
[2022-10-26 16:47] VITALS: TEMP 98.1; O2SAT 100
[2022-10-26 16:49] VITALS: BP 104/72
--- NOTE | 2022-10-27 13:23 | EKG ---
Test Date: 2022-10-26 Test Time: 13:20:40 Algology Teacher: JACQUI MEASUREMENT RESULTS: Intervals: Rate: 80 IN: 174 QRSD: 92 QT: 390 QTc: 449 [place]: P: 68 IN: 174 QRS: 77 T: 43 INTERPRETIVE STATEMENTS: Normal sinus rhythm Normal ECG Compared to ECG 04/02/2018 11:59:20 Sinus bradycardia no longer present Electronically Signed On 10-27-22 13:21:55 RN FIELD by Patrick Sauceda
== END 2022-10-26 16:15 | disposition home or self-care (01) ==
LOC: ER 12:06
DX: R56.9 Unspecified convulsions (principal); Z88.8 Allergy status to other drugs, medicaments and biological substances
CPT/HCPCS: 93005; 85025; 80048; 36415; 80320; 80329 ×2; 85610; 80076; 85730; 81003; 80307; 70450; 72125; 96375; 96374; 99283; J2765; J3010